=== PATIENT | female | born 1990 | race Caucasian/White ===

== ENCOUNTER 2023-08-29 15:18 | Outpatient (AMB) | payer BC, SELFPAY ==
--- NOTE | 2023-08-29 15:31 | A.OFFPC_ITS ---
Vital Signs 08/29/23 15:34 Height 5 ft 4.17 in Weight 162 lb 2 oz BMI 27.7 BP 118/80 Blood Pressure Location Lt brachial Position Sitting Respiration 12 Pulse 82 Pulse Source Pulse Oximeter Temp 98.4 F Temp Source Oral Pulse Oximetry (%) 99 Oxygen Delivery Method Room Air Intake Visit Reasons: NPV Intake Note: New patient visit Physical Director Required: No Is last menstrual period known: Yes Last menstrual period: 08/16/23 Allergies No Known Allergies Allergy (Verified 08/29/23 15:31) Medication List - Last Reconciled 08/29/23 by Zenobia Ordaz PA-C norethindrone (contraceptive) 0.35 mg PO DAILY phentermine mg PO Tobacco use date assessed: 08/29/23 Dental Screening Dental Screen Date: 08/29/23 Did you have a dental visit in the last 12 months?: Yes Did you have a dental problem in the last 6 months where you did not have access to dental care?: No Was dental information given to patient?: Patient has dentist HPI NPV HPI Details Pt is a 32 y/o female who presents today to re-establish care with me. She is transfering from [facility]. She has a significant past medical history and generalized anxiety, dysthymia, BRCA gene positive and history of obesity. Started phentermine in June and feels like it is working. She lost 8 lbs with this. No difficulty sleeping, palpitations, mood changes, or constipation. She would like to continue this. Psych: Does not feel that she needs the 300 mg of Wellbutrin anymore. Wants to come down to 150 mg. States that when she went up to 300 mg she did start to feel a little bit more anxiety but overall feels like her anxiety and depression is very well-controlled. Denies any SI/HI. 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 Has a good support system. Overall feels happy. She has never been hospitalized BCRA gene positive and follows with the breast center. Mammogram is up-to-date. [facility] Medical History (Updated 08/29/23 @ 16:01 by Zenobia Ordaz PA-C) Generalized anxiety disorder Dysthymia Overweight (BMI 25.0-29.9) Anxiety Ocular migraine Family History (Updated 08/29/23 @ 15:48 by Nancie Jaramillo CMA) Mother HTN (hypertension) Father Hypercholesteremia Diabetes Small cell lung cancer Maternal Grandmother Breast cancer Social History Housing: House Patient Tobacco Use Status: Never used Tobacco e-Cigarette/Vaping Use: Never Used Second Hand Smoke Exposure: No service: No Current occupational status: employed Current occupation: Nurse Current occupational exposures/hazards: No Cognitive needs: No Hearing needs: No Vision needs: Yes (contacts) Female Reproductive History Menstrual Date of last menstrual period: 08/16/23 Questionnaire PHQ-9 Over the last 2 weeks, how often have you been bothered by any of the following problems? 1. Little interest or pleasure in doing things: not at all 2. Feeling down, depressed, or hopeless: not at all 3. Trouble falling or staying asleep, or sleeping too much: not at all 4. Feeling tired or having little energy: several days 5. Poor appetite or overeating: not at all 6. Feeling bad about yourself - or that you are a failure or have let yourself or your family down: not at all 7. Trouble concentrating on things, such as reading the newspaper or watching television: not at all 8. Moving or speaking so slowly that other people could have noticed. Or the opposite - being so fidgety or restless that you have been moving around a lot more than usual: not at all 9. Thoughts that you would be better off or of hurting yourself in some way: not at all Total score: 1 Depression Screening Interpretation: Negative Depression Screening Done: Yes 55237 - PHQ-9 Billing: Yes Source: Developed by Drs. Braydon Brown, Payal Paulson, Geraldo Alexander and colleagues, with an educational alondra from [employer]. Thrive Questionnaire Date Thrive assessed: 08/29/23 I am a: Patient What is your living situation today?: I have a steady place to live Within the past 12 months, did the food you bought not last and you didn't have the money to get more?: Never true Within the past 12 months, did you worry whether your food would run out before you got money to buy more?: Never true Do you have trouble paying for medicines?: No Do you have trouble getting transportation to medical appointments?: No Do you have trouble paying your heating and electricity bill?: No Do you have trouble taking care of your child, family member or friend?: No Do you have trouble with day-to-day activities such as bathing, preparing meals, shopping, managing finances, etc.?: No Are you currently unemployed and looking for a job?: No Are you interested in more education?: No Please select the resources that you would like help with: None Currently or been in a relationship where the following occur: no concerns reported THRIVE Score: 0 AUDIT C Alcohol Use Questionnaire (AUDIT-C) 1. How often do you have a drink containing alcohol?: Monthly or less (1-2 weekly) 2. How many drinks containing alcohol do you have on a typical day when you are drinking?: 1 or 2 3. How often do you have six or more drinks on one occasion?: Never Total Score: 1 CRYSTAL-7 AMB Questionnaire CRSYTAL-7 Date CRYSTAL - 7 assessed: 08/29/23 Feeling nervous, anxious, or on edge: 0 = Not at all Not being able to stop or control worryin = Not at all Worrying too much about different things: 0 = Not at all Trouble relaxin = Several days Being so restless that it is hard to sit still: 0 = Not at all Becoming easily annoyed or irritable: 2 = More than half the days Feeling afraid as if something awful might happen: 0 = Not at all Total CRYSTAL-7 score (0-4 normal; 5-9 mild; 10-14 moderate; 15-21 severe): 3 Source: Developed by Drs. Braydon Brown, Payal Paulson, Geraldo Alexander and colleagues, with an educational alondra from [employer]. CRYSTAL-7 Assessment Billing CRYSTAL-7 Assessment Tool: CRYSTAL-7 Assessment 89278 Physical exam (Primary Care) Vital Signs: Last Vital Signs Temp 98.4 F 08/29/23 15:34 Pulse 82 08/29/23 15:34 Resp 12 08/29/23 15:34 BP 118/80 08/29/23 15:34 Pulse Ox 99 08/29/23 15:34 Oxygen Delivery Method Room Air 08/29/23 15:34 BMI result Body Mass Index 27.7 Tobacco/Smoking Status: Tobacco use Status Tobacco use date assessed 08/29/23 08/29/23 15:33 Patient Tobacco Use Status Never used Tobacco 08/29/23 15:33 e-Cigarette/Vaping Use Never Used 08/29/23 15:33 Depression Screening Interpretation: Negative Currently or been in a relationship where the following occur: no concerns reported Const Nutritional Appearance: not malnourished Orientation/consciousness: patient oriented x3 HENMT Ears: hearing grossly normal bilaterally Neck Thyroid: Thyroid normal Lymphatic: no lymphadenopathy noted Resp Auscultation: clear to auscultation bilaterally Cardio Rate: regular rate Rhythm: regular rhythm Heart sounds: S1 normal heart sound present and S2 normal heart sound present GI Inspection: Yes normal to inspection Palpation (GI): Soft to palpation and Other GI palpation findings present (nontender, no cva tenderness) Auscultation: normoactive bowel sounds Rectal Exam - Female: deferred Skin General skin exam: no rashes or lesions noted Neuro General: patient oriented x3, gait normal and no focal motor deficits Assessment and Plan Assessment & Plan (1) Overweight (BMI 25.0-29.9): Code(s): E66.3 - Overweight Plan: We will refill phentermine today. (2) Dysthymia: Code(s): F34.1 - Dysthymic disorder Plan: We will reduce Wellbutrin to 150 mg. (3) Generalized anxiety disorder: Code(s): F41.1 - Generalized anxiety disorder Plan: As above. She will let me know if there are any issues with this. Plan Follow up in 3-4 months for a physical exam. Sooner if needed. Patient understands and agrees with the plan. Orders: Orders Lipid Panel Today E66.3 - Overweight, F34.1 - Dysthymic disorder, F41.1 - Generalized anxiety disorder Complete Blood Count Auto Diff Today E66.3 - Overweight, F34.1 - Dysthymic disorder, F41.1 - Generalized anxiety disorder Comprehensive Met. Panel Today E66.3 - Overweight, F34.1 - Dysthymic disorder, F41.1 - Generalized anxiety disorder TSH reflex Free T4 Today E66.3 - Overweight, F34.1 - Dysthymic disorder, F41.1 - Generalized anxiety disorder Vitamin B12 and Folate Today E66.3 - Overweight, F34.1 - Dysthymic disorder, F41.1 - Generalized anxiety disorder Medications: New phentermine 15 mg PO BID 30 days 60 caps 1RF bupropion HCl XL (Wellbutrin XL) 150 mg PO QAM 90 tabs 1RF Coding Level of Care Code Est Pt Level 4 (25573) Complex EM visit Add On G2211 Diagnoses Overweight (BMI 25.0-29.9) E66.3 Dysthymia F34.1 Generalized anxiety disorder F41.1 Additional Codes CRYSTAL-7 Assessment Billing - CRYSTAL-7 Assessment Tool: CRYSTAL-7 Assessment 85686 ([id number])
[2023-08-29 15:34] VITALS: BP 118/80; PULSE 82; RESP 12; TEMP 36.9; O2SAT 99; BMI 27.7
== END 2023-08-29 16:10 | disposition home or self-care (01) ==
PROVIDERS: Visit Provider Physician Assistant
DX: F34.1 Dysthymic disorder (principal); E66.3 Overweight; F41.1 Generalized anxiety disorder
CPT/HCPCS: 99214; G2211

== ENCOUNTER 2023-11-13 09:57 | Outpatient (REF) | payer BC, SELFPAY ==
[2023-11-13 11:31] LABS: MANUAL DIFF FLAG NO
[2023-11-13 11:33] LABS: Basophils Percent Auto 0.9 % (0-2); Eosinophils Absolute Auto 0.1 X10*3/uL (0.0-0.4); Eosinophils Percent Auto 1.3 % (0-4); Hematocrit 40.3 % (37.0-47.0); Hemoglobin 14.1 g/dl (12.0-16.0); Imm Gran Abs Auto 0.01 X10*3/uL (0.00-0.03); Imm Gran Pct Auto 0.2 % (0.0-0.4); Lymphocytes Absolute Auto 1.3 X10*3/uL (1.2-4.9); Mean Corpuscular Hemoglobin 32.6 pg (27.0-33.0); Mean Corpuscular Volume 93.3 fL (80.0-98.0); Mean Platelet Volume 10.5 fL (9.4-12.3); Monocytes Absolute Auto 0.4 X10*3/uL (0.1-1.2); Monocytes Percent Auto 8.2 % (2-11); Neutrophils Absolute Auto 2.7 x10*3/uL (2.0-8.3); Neutrophils Percent Auto 60.4 % (45-73); Platelet Count 197 X10*3/uL (160-400); Red Blood Count 4.32 X10*6/uL (4.20-5.50); Red Cell Distribution Width 12.4 % (11.0-16.0); White Blood Count 4.5 X10*3/uL (4.8-10.8)
[2023-11-13 12:32] LABS: Alanine Aminotransferase 20 U/L (0-31); Albumin Level 4.5 g/dL (3.5-5.0); Alkaline Phosphatase 44 U/L (39-117); Anion Gap 12 (12-20); Aspartate Amino Transferase 27 U/L (5-31); Bilirubin Total 0.8 mg/dL (0.0-1.0); Blood Urea Nitrogen 9 mg/dL (9-16); Calcium 9.3 mg/dL (8.4-10.2); Carbon Dioxide 26 mmol/L (22-29); Chloride 106 mmol/L (96-108); Cholesterol 188 mg/dL (<200); Estimated Glomerular Filt Rate > 60; Glucose Random 78 mg/dL (60-115); HDL Cholesterol 73 mg/dL (>40); LDL Cholesterol Calculated 95 mg/dL (<100); Potassium 3.6 mmol/L (3.3-5.1); Sodium 140 mmol/L (135-145); Total Protein 7.1 g/dL (6.5-8.0); Triglycerides 100 mg/dL (<150)
[2023-11-13 12:40] LABS: TSH reflex Free T4 1.66 uIU/mL (0.32-4.0)
[2023-11-13 12:54] LABS: Folate 11.1 ng/mL (> or = 4.0); Vitamin B12 374 pg/mL (200-900)
== END 2023-11-13 09:58 | disposition home or self-care (01) ==
LOC: HO.WFDLDS 09:57
PROVIDERS: Visit Provider Physician Assistant
DX: F41.1 Generalized anxiety disorder (principal); F34.1 Dysthymic disorder; E66.3 Overweight
CPT/HCPCS: 36415; 80053; 80061; 82607; 82746; 84443; 85025

== ENCOUNTER 2023-12-06 08:11 | Outpatient (AMB) | payer BC, SELFPAY ==
--- NOTE | 2023-12-06 08:20 | A.OFFPC_ITS ---
Vital Signs 12/06/23 08:26 Height 5 ft 2.99 in Weight 156 lb BMI 27.6 BP 98/79 Blood Pressure Location Rt brachial Position Sitting Respiration 14 Pulse 78 Pulse Source Pulse Oximeter Pulse Oximetry (%) 98 Oxygen Delivery Method Room Air Intake Visit Reasons: PE Intake Note: Physical Allergies No Known Allergies Allergy (Verified 12/06/23 08:25) Medication List - Last Reconciled 12/06/23 by Zenobia Ordaz PA-C norethindrone (contraceptive) 0.35 mg PO DAILY phentermine 15 mg PO BID 30 days Tobacco use date assessed: 08/29/23 Dental Screening Dental Screen Date: 08/29/23 HPI PE HPI Details Patient is a 33-year-old female who presents today for a physical exam. She has no acute concerns today She has a significant past medical history and generalized anxiety, dysthymia, BRCA gene positive and history of obesity. Started phentermine in June and feels like it is working. She lost 10 lbs with this. No difficulty sleeping, palpitations, mood changes, or constipation. She would like to continue this. Psych: She came off of the Wellbutrin this summer and feels great. She denies any SI/HI. States that her anxiety and depression are currently well- controlled. 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 Has a good support system. Overall feels happy. She has never been hospitalized BCRA gene positive and follows with the breast center. Mammogram is up-to-date. [facility] Medical History (Updated 08/29/23 @ 16:01 by Zenobia Ordaz PA-C) Generalized anxiety disorder Dysthymia Overweight (BMI 25.0-29.9) Anxiety Ocular migraine Family History (Updated 08/29/23 @ 15:48 by Nancie Jaramillo CMA) Mother HTN (hypertension) Father Hypercholesteremia Diabetes Small cell lung cancer Maternal Grandmother Breast cancer Social History Housing: House Patient Tobacco Use Status: Never used Tobacco e-Cigarette/Vaping Use: Never Used Second Hand Smoke Exposure: No service: No Current occupational status: employed Current occupation: Nurse Current occupational exposures/hazards: No Cognitive needs: No Hearing needs: No Vision needs: Yes (contacts) Questionnaire Thrive Questionnaire Date Thrive assessed: 08/29/23 CRYSTAL-7 AMB Questionnaire CRYSTAL-7 Date CRYSTAL - 7 assessed: 08/29/23 Source: Developed by Drs. Braydon Brown, Payal Paulson, Geraldo Alexander and colleagues, with an educational alondra from [employer]. Physical exam (Primary Care) Vital Signs: Last Vital Signs Pulse 78 12/06/23 08:26 Resp 14 12/06/23 08:26 BP 98/79 12/06/23 08:26 Pulse Ox 98 12/06/23 08:26 Oxygen Delivery Method Room Air 12/06/23 08:26 BMI result Body Mass Index 27.6 Tobacco/Smoking Status: Tobacco use Status Tobacco use date assessed 08/29/23 12/06/23 08:21 Patient Tobacco Use Status Never used Tobacco 12/06/23 08:21 e-Cigarette/Vaping Use Never Used 12/06/23 08:21 Thrive Assessment: Date of Thrive Assessment Date Thrive assessed 08/29/23 12/06/23 08:21 Const Orientation/consciousness: patient oriented x3 HENMT Ears: hearing grossly normal bilaterally and TM's normal bilaterally General nose exam: No nasal polyps present Face and sinus: Yes sinuses nontender Mouth: Normal oral and palatal mucosa present Eyes Pupils: Equal, round and reactive pupils present EOM: EOMs intact bilaterally Neck Neck: Yes full ROM and Yes no lymphadenopathy Thyroid: Thyroid normal Chest Chest palpation & inspection: normal inspection of the chest Resp Auscultation: clear to auscultation bilaterally Cardio Rate: regular rate Rhythm: regular rhythm Heart sounds: S1 normal heart sound present and S2 normal heart sound present Peripheral pulses: Peripheral pulses 2+ throughout GI Other: Soft, nontender Auscultation: normal bowel sounds Rectal Exam - Female: deferred General: Yes no CVA tenderness Back/Spine/Pelvis Other: Nontender Back: no CVA tenderness Skin General skin exam: no rashes or lesions noted Neuro General: patient oriented x3, gait normal, CN's II-XI intact bilaterally and deep tendon reflexes 2+ bilaterally Cranial nerves: Yes Equal, round and reactive pupils present Motor exam (neuro): 5/5 motor strength present throughout Sensory Exam: double simultaneous stimulation for sensation normal Coordination: [id number] test normal and Romberg test negative Extrem General: Yes normal to inspection and Yes full ROM Psych Affect: normal affect Attitude: cooperative Thought process: Normal thought process present Thought content: Normal thought content present Insight: Good insight present (Psych) Judgement: Good judgement present (Psych) Results Reviewed Results Reviewed: Laboratory Tests 11/13/23 09:58 Sodium 140 Potassium 3.6 Chloride 106 Creatinine 0.79 Estimated GFR > 60 Random Glucose 78 AST 27 ALT 20 Alkaline Phosphatase 44 Triglycerides 100 Cholesterol 188 LDL Cholesterol, Calc 95 HDL Cholesterol 73 Vitamin B12 374 TSH 1.66 Assessment and Plan Assessment & Plan (1) Overweight (BMI 25.0-29.9): Code(s): E66.3 - Overweight (2) Dysthymia: Code(s): F34.1 - Dysthymic disorder (3) Routine general medical examination at a health care facility: Code(s): Z00.00 - Encounter for general adult medical examination without abnormal findings Coding Level of Care Code Est Pt Prev Care 18-39y(85857) Diagnoses Overweight (BMI 25.0-29.9) E66.3 Dysthymia F34.1 Routine general medical examination at a health care facility Z00.00
[2023-12-06 08:26] VITALS: BP 98/79; PULSE 78; RESP 14; O2SAT 98; BMI 27.6
== END 2023-12-06 09:52 | disposition home or self-care (01) ==
PROVIDERS: PCP Physician Assistant; Visit Provider Physician Assistant
DX: E66.3 Overweight (principal); F34.1 Dysthymic disorder; Z00.00 Encounter for general adult medical examination without abnormal findings
CPT/HCPCS: 99395

== ENCOUNTER 2024-02-21 15:47 | Outpatient (AMB) | payer BC, SELFPAY ==
--- NOTE | 2024-02-21 15:49 | MHC.PC.OV ---
Intake Visit Reasons: Discuss cancer dx and prn anxiety medication Allergies No Known Allergies Allergy (Verified 12/06/23 08:25) Medication List - Last Reconciled 02/21/24 by Zenobia Ordaz PA-C lorazepam 0.5 mg PO BID PRN Tobacco use date assessed: 08/29/23 Dental Screening Dental Screen Date: 08/29/23 HPI Discuss cancer dx and prn anxiety medication HPI Details Patient is a 33-year-old female who presents today for a follow up. Last week got diagnosed with invasive ductal carcinoma of the left breast. She states that this has been very stressful. She does have BRCA gene positive and was following with the breast Center this was picked up on routine MRI. She states that she is going to [facility]. She already met with the team and has an appointment with the surgical oncologist on Monday. Psych: She denies any SI/HI. States that her anxiety and depression are currently okay, obviously exacerbated with the recent cancer diagnosis but does not want to be on anything right now. 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 Has a good support system. [facility] Medical History (Updated 02/21/24 @ 15:57 by Zenobia Ordaz PA-C) Generalized anxiety disorder Dysthymia Overweight (BMI 25.0-29.9) Anxiety Ocular migraine Family History (Updated 08/29/23 @ 15:48 by Nancie Jaramillo [facility]) Mother HTN (hypertension) Father Hypercholesteremia Diabetes Small cell lung cancer Maternal Grandmother Breast cancer Social History Housing: House Patient Tobacco Use Status: Never used Tobacco e-Cigarette/Vaping Use: Never Used Second Hand Smoke Exposure: No service: No Current occupational status: employed Current occupation: Nurse Current occupational exposures/hazards: No Cognitive needs: No Hearing needs: No Vision needs: Yes (contacts) Questionnaire Thrive Questionnaire Date Thrive assessed: 08/29/23 CRYSTAL-7 AMB Questionnaire CRYSTAL-7 Date CRYSTAL - 7 assessed: 08/29/23 Source: Developed by Drs. Braydon Brown, Payal Paulson, Geraldo Alexander and colleagues, with an educational alondra from [employer]). Physical exam (Primary Care) Tobacco/Smoking Status: Tobacco use Status Tobacco use date assessed 08/29/23 12/06/23 08:21 Patient Tobacco Use Status Never used Tobacco 08/21/24 08:21 e-Cigarette/Vaping Use Never Used 12/06/23 08:21 Thrive Assessment: Date of Thrive Assessment Date Thrive assessed 08/29/23 12/06/23 08:21 Telehealth Telehealth Telehealth Platform: Telephone Location of provider rendering services: practice address Location of patient: address on file Patient Identification confirmed using: Name, : Yes Telehealth method: voice only Patient verbally consented to treatment: Yes Patient verbally consented to billing insurance company: Yes Patient informed of any privacy concerns related to visit: Yes Minutes spent on Phone/Video with Pt.: 14 Coding Level of Care Code Tele Est Pt Level 2 (32562) Diagnoses Generalized anxiety disorder F41.1 Dysthymia F34.1 Invasive ductal carcinoma of left breast C50.912 Assessment & Plan Assessment & Plan (1) Generalized anxiety disorder: Code(s): F41.1 - Generalized anxiety disorder Category: Medical Plan: Using lorazepam as needed. States that she has not had to really take this. (2) Dysthymia: Code(s): F34.1 - Dysthymic disorder Category: Medical Plan: As above. Currently feeling okay and wants to wait but does not think she wants any medication at this point. No SI/HI. (3) Invasive ductal carcinoma of left breast: Code(s): C50.912 - Malignant neoplasm of unspecified site of left female breast Category: Medical Plan: Made the decision to follow with [facility]. She has an appointment on Monday with the surgical oncologist.
== END 2024-02-21 16:57 | disposition home or self-care (01) ==
LOC: HO.HMCFM 15:47
PROVIDERS: PCP Physician Assistant; Visit Provider Physician Assistant
DX: F41.1 Generalized anxiety disorder (principal); F34.1 Dysthymic disorder; C50.912 Malignant neoplasm of unspecified site of left female breast

== ENCOUNTER → 2024-02-21 15:47 | Outpatient (BNVA) | payer BC, SELFPAY | PROVIDERS: PCP Physician Assistant; Visit Provider Physician Assistant ==

== ENCOUNTER 2024-05-02 09:31 | Outpatient (AMB) | payer BC, SELFPAY ==
--- NOTE | 2024-05-02 09:37 | A.OFFPC_ITS ---
Vital Signs 05/02/24 09:38 Height 5 ft 2.99 in Weight 153 lb 4 oz BMI 27.2 BP 112/84 Blood Pressure Location Lt brachial Position Sitting Pulse 84 Pulse Source Pulse Oximeter Pulse Oximetry (%) 98 Oxygen Delivery Method Room Air Intake Visit Reasons: discuss depression medication Intake Note: Discuss depression medication Employee Placement Specialist Required: No Allergies No Known Allergies Allergy (Verified 05/02/24 09:38) Medication List - Last Reconciled 05/02/24 by Zenobia Ordaz PA-C lorazepam 0.5 mg PO BID PRN tamoxifen 20 mg PO DAILY Tobacco use date assessed: 08/29/23 Dental Screening Dental Screen Date: 08/29/23 HPI discuss depression medication HPI Details Patient is a 33-year-old female who presents today with complaints of increased anxiety and depression. Recently diagnosed with breast cancer and had a bilateral mastectomy. She is undergoing the filling now so she can discuss implants. She started tamoxifen 2 days ago and is waiting for results about whether or not she will need to start chemo. She finds out in 2 weeks. She states that the lab from [place] just collected the tissue sample. She is following with [facility]. This surgery was completed at [facility]. Obviously, all of this listed above has been causing a great deal of stress in her life. She has a family history of breast cancer and they are discussing whether or not they will need to also remove her ovaries or if she will be on suppression medication. She states that she is just not ready at the age of 33 to enter menopause. She also is worried because she has 2 young children. She finds herself emotional and states that she is ready to talk with someone about this. She has been on support groups but also feels like it creates a lot of fear and anxiety. She is now open to trying medication. She also at times notices lower abdominal bloating in his just worried about her ovaries. She states that she wants a CA 125 checked and a transvaginal ultrasound. She has not yet seen the bone grinder oncologist. She thinks that some of the stresses just causing her to feel a little bloated. [facility] Medical History (Updated 05/02/24 @ 10:16 by Zenobia Ordaz PA-C) Generalized anxiety disorder Dysthymia Overweight (BMI 25.0-29.9) Anxiety Ocular migraine Family History Mother HTN (hypertension) Father Hypercholesteremia Diabetes Small cell lung cancer Maternal Grandmother Breast cancer Social History (Updated 05/02/24 @ 09:41 by Nancie Jaramillo CMA) Housing: House Alcohol intake: current Patient Tobacco Use Status: Never used Tobacco e-Cigarette/Vaping Use: Never Used Second Hand Smoke Exposure: No service: No Current occupational status: employed Current occupation: Nurse Current occupational exposures/hazards: No Cognitive needs: No Hearing needs: No Vision needs: Yes (contacts) Questionnaire PHQ-9 Over the last 2 weeks, how often have you been bothered by any of the following problems? 1. Little interest or pleasure in doing things: several days 2. Feeling down, depressed, or hopeless: more than half the days 3. Trouble falling or staying asleep, or sleeping too much: several days 4. Feeling tired or having little energy: several days 5. Poor appetite or overeating: not at all 6. Feeling bad about yourself - or that you are a failure or have let yourself or your family down: several days 7. Trouble concentrating on things, such as reading the newspaper or watching television: several days 8. Moving or speaking so slowly that other people could have noticed. Or the opposite - being so fidgety or restless that you have been moving around a lot more than usual: not at all 9. Thoughts that you would be better off or of hurting yourself in some way: not at all Total score: 7 Depression Screening Interpretation: Positive Depression Screening Done: Yes 29702 - PHQ-9 Billing: Yes Source: Developed by Drs. Braydon Brown, Payal Paulson, Geraldo Alexander and colleagues, with an educational alondra from [employer]. Thrive Questionnaire Date Thrive assessed: 05/02/24 I am a: Patient What is your living situation today?: I have a steady place to live Within the past 12 months, did the food you bought not last and you didn't have the money to get more?: Never true Within the past 12 months, did you worry whether your food would run out before you got money to buy more?: Never true Do you have trouble paying for medicines?: No Do you have trouble getting transportation to medical appointments?: No Do you have trouble paying your heating and electricity bill?: No Do you have trouble taking care of your child, family member or friend?: No Do you have trouble with day-to-day activities such as bathing, preparing meals, shopping, managing finances, etc.?: No Are you currently unemployed and looking for a job?: No Are you interested in more education?: No Please select the resources that you would like help with: None Currently or been in a relationship where the following occur: No concerns reported THRIVE Score: 0 AUDIT C Alcohol Use Questionnaire (AUDIT-C) 1. How often do you have a drink containing alcohol?: 2-4 times a month 2. How many drinks containing alcohol do you have on a typical day when you are drinking?: 3 or 4 3. How often do you have six or more drinks on one occasion?: Less than monthly Total Score: 4 Score Reviewed/Action Taken: Yes CRYSTAL-7 AMB Questionnaire CRYSTAL-7 Date CRYSTAL - 7 assessed: 05/02/24 Feeling nervous, anxious, or on edge: 2 = More than half the days Not being able to stop or control worryin = Nearly every day Worrying too much about different things: 2 = More than half the days Trouble relaxin = More than half the days Being so restless that it is hard to sit still: 1 = Several days Becoming easily annoyed or irritable: 2 = More than half the days Feeling afraid as if something awful might happen: 1 = Several days Total CRYSTAL-7 score (0-4 normal; 5-9 mild; 10-14 moderate; 15-21 severe): 13 Source: Developed by Drs. Braydon Brown, Payal Paulson, Geraldo Alexander and colleagues, with an educational alondra from [employer]. CRYSTAL-7 Assessment Billing CRYSTAL-7 Assessment Tool: CRYSTAL-7 Assessment 54255 Physical exam (Primary Care) Vital Signs: Last Vital Signs Pulse 84 05/02/24 09:38 BP 112/84 05/02/24 09:38 Pulse Ox 98 05/02/24 09:38 Oxygen Delivery Method Room Air 05/02/24 09:38 BMI result Body Mass Index 27.2 Tobacco/Smoking Status: Tobacco use Status Tobacco use date assessed 08/29/23 05/02/24 09:41 Patient Tobacco Use Status Never used Tobacco 05/02/24 09:41 e-Cigarette/Vaping Use Never Used 05/02/24 09:41 PHQ-9: PHQ-9 Score PHQ-9: Total score 7 05/02/24 12:13 Depression Screening Interpretation: Positive Thrive Assessment: Date of Thrive Assessment Date Thrive assessed 05/02/24 05/02/24 09:41 Currently or been in a relationship where the following occur: No concerns reported Const Orientation/consciousness: patient oriented x3 HENMT Ears: hearing grossly normal bilaterally Neck Thyroid: Thyroid normal Lymphatic: no lymphadenopathy noted Resp Auscultation: clear to auscultation bilaterally Cardio Rate: regular rate Rhythm: regular rhythm Heart sounds: S1 normal heart sound present and S2 normal heart sound present GI Inspection: Yes normal to inspection Palpation (GI): Soft to palpation and Other GI palpation findings present (nontender, no cva tenderness) Auscultation: normoactive bowel sounds Rectal Exam - Female: deferred Skin General skin exam: no rashes or lesions noted Neuro General: patient oriented x3, gait normal and no focal motor deficits Coding Level of Care Code Est Pt Level 4 (63319) Complex EM visit Add On G2211 Diagnoses Dysthymia F34.1 Generalized anxiety disorder F41.1 Invasive ductal carcinoma of left breast C50.912 BRCA2 positive Z15.01; Z15.09 Abdominal bloating R14.0 Additional Codes PHQ-9 - 10329 - PHQ-9 Billing: Yes ([id number]) CRYSTAL-7 Assessment Billing - CRYSTAL-7 Assessment Tool: CRYSTAL-7 Assessment 76334 ([id number]) Assessment & Plan Assessment & Plan (1) Dysthymia: Code(s): F34.1 - Dysthymic disorder Category: Medical Plan: I will start patient on Lexapro. I did put in a referral for behavioral health. I did have her meet with our nurse navigator today. We discussed risks and benefits and adverse effects of the Lexapro. I will have her return in 3-4 weeks to be reassessed. Sooner if needed. (2) Generalized anxiety disorder: Code(s): F41.1 - Generalized anxiety disorder Category: Medical Plan: As above. Refilled lorazepam to use very sparingly. (3) Invasive ductal carcinoma of left breast: Code(s): C50.912 - Malignant neoplasm of unspecified site of left female breast Category: Medical Plan: Following with [facility] (4) BRCA2 positive: Code(s): Z15.01 - Genetic susceptibility to malignant neoplasm of breast; Z15.09 - Genetic susceptibility to other malignant neoplasm Category: Medical Plan: As above (5) Abdominal bloating: Code(s): R14.0 - Abdominal distension (gaseous) Category: Medical Plan: Labs ordered. Ultrasound ordered. We will follow up pending test results. Orders: Orders CA-125 Today C50.912 - Malignant neoplasm of unspecified site of left female breast, F34.1 - Dysthymic disorder, F41.1 - Generalized anxiety disorder, R14.0 - Abdominal distension (gaseous), Z15.01 - Genetic susceptibility to malignant neoplasm of breast, Z15.09 - Genetic susceptibility to other malignant neoplasm TSH reflex Free T4 Today C50.912 - Malignant neoplasm of unspecified site of left female breast, F34.1 - Dysthymic disorder, F41.1 - Generalized anxiety disorder, Z15.01 - Genetic susceptibility to malignant neoplasm of breast, Z15.09 - Genetic susceptibility to other malignant neoplasm US pelvic and transvaginal Today C50.912 - Malignant neoplasm of unspecified site of left female breast, F41.1 - Generalized anxiety disorder, R14.0 - Abdominal distension (gaseous), Z15.01 - Genetic susceptibility to malignant neoplasm of breast, Z15.09 - Genetic susceptibility to other malignant neoplasm US abdomen complete Today C50.912 - Malignant neoplasm of unspecified site of left female breast, R14.0 - Abdominal distension (gaseous), Z15.01 - Genetic susceptibility to malignant neoplasm of breast, Z15.09 - Genetic susceptibility to other malignant neoplasm Comprehensive [place]. Panel Fast Today C50.912 - Malignant neoplasm of unspecified site of left female breast, F34.1 - Dysthymic disorder, F41.1 - Generalized anxiety disorder, Z15.01 - Genetic susceptibility to malignant neoplasm of breast, Z15.09 - Genetic susceptibility to other malignant neoplasm Complete Blood Count Auto Diff Today C50.912 - Malignant neoplasm of unspecified site of left female breast, F34.1 - Dysthymic disorder, F41.1 - Generalized anxiety disorder, Z15.01 - Genetic susceptibility to malignant neoplasm of breast, Z15.09 - Genetic susceptibility to other malignant neoplasm Referrals Nurse Navigator Referral C50.912 - Malignant neoplasm of unspecified site of left female breast, F34.1 - Dysthymic disorder, F41.1 - Generalized anxiety disorder Medications: New escitalopram oxalate (Lexapro) 5 mg PO DAILY 90 tabs 1RF Refilled lorazepam 0.5 mg PO BID PRN 60 tabs 0RF anxiety
[2024-05-02 09:38] VITALS: BP 112/84; PULSE 84; O2SAT 98; BMI 27.2
--- OUTSIDE RECORDS SUMMARY | 2024-05-02 10:41 | XMS_ITS | Continuity of Care Document ---
Author Organization [facility] Address [address] [place] [address]- Care Team Providers Care Food Service Agent Name Role Phone Cesar STONE, Tanya Townsend Primary Care Physician Encounter [facility] [place] Date(s): 03/12/24 - 04/11/24 [facility] [address] [place] [address]- Encounter Type: Triage Allergies, Adverse Reactions, Alerts No Known Allergies Immunizations Given and Recorded Vaccine Date Status Refusal Reason SARS-CoV-2 (COVID-19) mRNA-1273 vaccine 04/05/21 R ecorded SARS-CoV-2 (COVID-19) mRNA-1273 vaccine 04/19/20 R ecorded influenza virus vaccine, inactivated 01/29/21 Suleman rded influenza virus vaccine, inactivated 02/10/20 Give n influenza virus vaccine, inactivated 02/08/16 Suleman rded influenza virus vaccine, inactivated 01/16/16 Suleman rded tetanus/diphtheria/pertussis, acel(Tdap) 1 10/24/19 Given tetanus/diphtheria/pertussis, acel(Tdap) 2 10/18/16 Recorded Afluria (oldterm) 01/26/17 Given 1Result Comment: Hanlded getting vaccine well 2Result Comment: [07/18/2017] done during menses Medications Ativan 1 mg oral tablet See Instructions, 1 tablet By Mouth at bedtime the night before the procedure and repeat dose 1 hour preprocedure, # 2 tablet, 0 Refills, Maintenance, 01/26/24 12:30:00 PM EDT, [id number], Partial fill upon patient request if the prescription is for a schedule II opioid drug., 165, cm, 10/23/23 16:03:00 EDT, Height, 79.3, kg, 08/24/22 8:49:00 EDT, Dry Weight Start Date: 01/26/24 Status: Ordered Quantity: 2.0 Unit: tablet Repeat number: 1 ibuprofen 800 mg oral tablet 800 mg, 1, tablet, By Mouth, 3 times a day, As needed migraine, Refills 0, Maintenance, 08/24/22 9:03:00 AM EDT, Partial fill upon patient request if the prescription is for a schedule II opioid drug. Start Date: 08/24/22 Status: Ordered Repeat number: 1 nystatin topical [id number] u/gm powder 1 application, Topically, 2 times a day, # 15 Gm, 3 Refills, Acute 02/24/25 2:20:00 PM EST, 242:20:00 PM EST, Powder, [id number], Partial fill upon patient request if the prescription is for a schedule II opioid drug., 1 application Topically 2 times a day, 165, cm, 02/20/24 13:02:00 EST, Height, 79.3, kg, 08/24/22 8:49:00 EDT, Dry Weight Start Date: 02/20/24 Stop Date: 02/24/25 Status: Ordered Quantity: 15.0 Unit: g Repeat number: 4 Problem List Condition Confirmation Course Effective Dates Status H ealth Status Informant Anxiety Confirmed Active BRCA2 positive [id number] Confirmed Active Dense breast tissue on mammogram Confirmed Active Migraines with aura Confirmed Active Overweight with body mass index (BMI) of 29 to 29.9 in adult Confirmed Active Pelvic pain Confirmed Active Depression, major, recurrent, mild Confirmed Active Reducible umbilical hernia Confirmed Active Oral contraceptive use Confirmed Active Social History Social History Type Response Smoking Status Never (less than 100 in lifetime) entered on: 12/26/19 Sex Sex Representation Female (finding) Patient Care team information Care Team Personnel Name: Leslie Gonzales MD Position: S WALLPAPER CONSULTANT MD Member Role: Lifetime WALLPAPER CONSULTANT Physician Address: [address] [place] [address]'s [facility] [employer] [place] [address]- Telecom: Name: Tanya Guerrero MD Position: Reference Physician Member Role: PCP [address]: [address] [place] [address], [place] [address]- [place] Telecom: Care Team Related Persons Name: LIZA HOLGUIN Name: SHIRLEY HOLGUIN Insurance Providers Guarantor name: NANCY CHELSIE Health Plan Information #: 1 Payer: HMO [employer] Member Number: NA Policy Number: NA Group Number: NA
--- OUTSIDE RECORDS SUMMARY | 2024-05-02 10:41 | XMS_ITS | Data Portability ---
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 We discussed the fact that this was not the related to congestive heart failure because of its location and the lack of any other symptoms. Reassured she was adequately treated for possible Lyme prophylaxis when the she took the doxycycline. She will follow-up when necessary. At least 25 minutes was spent with the patient in direct [id number] contact of which at least 50% was counseling and coordination of care. [email or web address] Not available 04/06/2016 15:54:56 Plan of Treatment Reminders Order Date Submit Date Provider Last Modified By Organization Details Last Modified Time Details Appointments None recorded. Lab tuberculin skin test - 07/24/13 PPD plant on Rt forearm; Mfr. [employer], Lot # [id number], Exp. 09/06/152013 014 [email or web address] [facility], [address] [place], [address], 4 11:21:45 Referral None recorded. Procedures None recorded. Surgeries None recorded. Imaging None recorded. Medication Orders doxycycline hyclate 100 mg tablet 2015 016 ppaer [id number], [address] [place], [address], 6 17:06:05 Patient TargetsNo targets recorded. Patient Instructions Encounter Date Encounter Id Patient Instructions Last Modified By Organization Details Last Modified Time 12/11/2014 [id number] intrauterine device (IUD) insertion: care instructions [email or web address] Not available 12/11/2014 16:26:58 Well Visit, Ages 18 to 65: Care Instructions [email or web address] Not available 12/11/2014 16:26:58 After a discussi on of treatment options, which included consideration of best practices and patient preferences, the following treatment plan and objectives were adopted: reviewed with neurologic migraine at risk for stork,?? stop control pill- consider IUD,? add 81 mg aspirin, pt agrees with plan and will consider and then schedule [email or web address] Not available 12/11/2014 16:26:58 03/08/2016 [id number] tick bite: care instructions [email or web address] [id number] Not available 04/02/2016 04:10:47 Reason for Referral None Reported. Results Created Date Observation Date Name Description Value Unit Range Abnormal Flag Note LastModifiedBy Organization Detail LastModifiedTime 07/27/19 14 07/26/2013 tuber culin skin test TB negati ve Not Available [address], [address], 07/24/2013 11:21:21 Result Notes None recorded. Problems Name Problem SNOMED Code Status Onset Date Resolution Date Notes Provider Name and Address Organization Details Recorded Time Headache 08795071 Completed 200404/30/[address] [facility] 3 03:06:37 Contusio n 423815272 Completed 200704/30/2010 Not Available [facility] 3 03:06:37 Atypical squamous cells of undeterm ined signific ance on cervical Papanico laou smear 398177986 Active Not Available [facility] 3 03:06:37 Herpes simplex 06413542 Completed 200504/30/2010 tested neg, no recurren ce Not Available [facility] 3 03:06:37 Right lower quadrant pain 825050386 Completed 04/30/2010 Not Available [facility] 3 03:06:37 Urinary tract infectio us disease 60401713 Completed 04/30/2010 Not Available [facility] 3 03:06:37 Diarrhea 57613966 Completed 200004/30/2010 Not Available [facility] 3 03:06:37 Migraine with aura 5175065 Active NICHOLAS Powers [address] [place] [address], [id number] , [facility] 5 16:26:58 Acute pharyngi tis 464129276 Completed 200404/30/2010 Not Available [facility] 3 03:06:37 Closed fracture of phalanx of foot 72296607 Completed 200203/06/2013 Not Available [facility] 3 02:04:03 Pain in throat 701465249 Completed 04/30/2010 Not Available [facility] 3 03:06:37 Common cold 49473198 Completed 200204/30/2010 Not [address] [facility] 3 03:06:37 Verruca vulgaris 05975240 Completed 200104/30/[address] Not [address] [facility] 3 03:06:37 Dysmenor leonel 069101131 Completed 200604/30/2010 Not Available [facility] 3 03:06:37 Infectio us mononucl eosis 688472390 Completed 200403/06/[address] [facility] 3 02:04:07 Acute conjunct ivitis 20514766 Completed 200404/30/2010 Not Available [facility] 3 03:06:37 Abnormal weight gain 913158823 Active Not Available [facility] 3 03:06:37 Sprain of knee and leg Completed 200404/30/2010 Not Available [facility] 3 03:06:37 Concussi on injury of brain 284982404 Completed 200304/30/2010 Not Available [facility] 3 03:06:37 Generali zed abdomina l pain 103364858 Completed 200404/30/2010 Not Available [facility] 3 03:06:37 Acne 56597082 Completed 200604/30/2010 Not Available [facility] 3 03:06:37 Dysuria 88607645 Completed 04/30/2010 Not Available [facility] 3 03:06:37 Migraine 63917707 Active Lina Phillips, MANAGER TRAINING [employer] DEVELOPMENT [address] [place], [address] , [facility] 3 12:26:02 Pain in wrist 61078817 Completed 200304/30/2010 Not Available [facility] 3 03:06:37 Sprain of wrist 34690075 Completed 200304/30/2010 Not Available [facility] 3 03:06:37 Pain in limb 07154955 Completed 200204/30/2010 Not Available [facility] 3 03:06:37 Viral upper respirat ory tract infectio n 907995851 Completed 200704/30/2010 Not Available [facility] 3 03:06:37 Malaise and fatigue 242067439 Completed 200704/30/2010 Not Available [facility] 3 03:06:37 Sprain of hand 91683064 Completed 200204/30/2010 Not Available [facility] 3 03:06:37 Problem Notes None recorded. Medical Equipment None Reported. Allergies No known drug allergies Medications Name Sig Start Date Stop Date Status Note LastModified by Organization Details LastModified Time doxycycl hyc tab 100mg active Not Available Not Available No t Available microgestin tab 05/06 active Not Available Not Available Not Available 05/06 tab active Not Available Not Available Not Available 05/06 1-20 mg-mcg tabs active Not Available Not Available Not Available Apri 0.15 mg-0.03 mg tablet TAKE 1 TABLET BY MOUTH EVERY DAY 2009 active Not Available Not Available Not Avai lable ibuprofen 800 mg tablet Take 1 tablet 3 times a day by oral route as needed. 2011 active Not Available Not Available Not Avai lable Tubersol 5 tub. unit/0.1 mL intradermal injection solution 2010 active rtc 10/04 for tb/pp d read Not Available Not Available Not Available doxycycline hyclate 100 mg tablet TAKE 2 TABLETS TODAY 04/05 completed Not Available Not Available Not Available Bactrim DS 800 mg-160 mg tablet Take 1 tablet every 12 hours by oral route for 7 days. 02/04 completed Not Available Not Available Not Available June05/06 (21) 1 mg-20 mcg tablet TAKE 1 TABLET BY MOUTH EVERY DAY 04/05 completed Not Available Not Available Not Available Vitals Date Recorded Body weight Heart rate Body mass index (BMI) Body height Body temperature Systolic blood pressure Diastolic blood pressure Provider Name and Address Organization Details Last Updated DateTime 5 89126.2 11728 g 80 /min 26 kg/m2 165.1 cm 98.9 [degF] 122 mm[Hg] 70 mm[Hg] Marilyn Gillespie REPRODUCTION ARTIST [facility] 5 16:41:41 Date Recorded Body height Body mass index (BMI) Body weight Provider Name and Address Organization Details Last Updated DateTime 12/11/2014 165.1 cm 24 kg/m2 37121.46268 2 g Radha Damian [facility] 12/11/2014 15:47:49 Date Recorded Heart rate Systolic blood pressure Diastolic blood pressure Provider Name and Address Organization Details Last Updated DateTime 12/11/2014 80 /min 104 mm[Hg] 74 mm[Hg] Radha Damian [facility] 12/11/2014 15:53:39 Date Recorded Body height Provider Name an d Address Organization Details Last Updated DateTime 03/08/2016 165.1 cm Roxanne Salguero LPN [facility] 03/08/2016 07:46:45 Date Recorded Body weight Provider Name an d Address Organization Details Last Updated DateTime 03/08/2016 39039.14 g [facility]ox[facility]gu[facility] 03/08/2016 07:48:01 Date Recorded Body mass index (BMI) Provider Name and Address Organization Details Last Updated DateTime 03/08/2016 27.5 kg/m2 Roxanne Salguero LPN [facility] 03/08/2016 07:48:02 Date Recorded Heart rate Provider Name an d Address Organization Details Last Updated DateTime 03/08/2016 72 /min Roxanne Salguero LPN [facility] 03/08/2016 07:51:50 Date Recorded Body temperature Provider Name a nd Address Organization Details Last Updated DateTime 03/08/2016 98.1 [degF] Roxanne Salguero LPN [facility] 03/08/2016 07:52:23 Date Recorded Body weight Provider Name an d Address Organization Details Last Updated DateTime 04/05/2016 02842.19 g Adrianna Jarrett [facility] 04/05/2016 17:04:20 Date Recorded Body height Body mass index (BMI) Provider Name and Address Organization Details Last Updated DateTime 04/05/2016 163.83 cm 28.4 kg/m2 Adrianna Jarrett [facility] 04/05/2016 17:05:46 Date Recorded Body temperature Provider Name a nd Address Organization Details Last Updated DateTime 04/05/2016 98.2 [degF] Adrianna Jarrett [facility] 04/05/2016 17:05:52 Date Recorded Systolic blood pressure Diastolic blood pressure Provider Name and Address Organization Details Last Updated DateTime 03/08/2016 100 mm[Hg] 66 mm[Hg] Roxanne Salguero LPN [facility] 03/08/2016 07:51:42 Date Recorded Systolic blood pressure Diastolic blood pressure Provider Name and Address Organization Details Last Updated DateTime 04/05/2016 112 mm[Hg] 82 mm[Hg] Adrianna Jarrett [facility] 04/05/2016 17:05:49 Social History Question Answer Notes LastModified by Organizat ion Details LastModified Time Tobacco Smoking Status Never Smoker Not Available [facility] 03/03/2011 04:54:19 Do You Have An Advance Directive? No Not Interested 04/30/10 [email or web address] Information not available 04/30/2010 What Is Your Level Of Alcohol Consumption? Occasional Few On The Weekends Information not available 12/11/2014 What Is Your Level Of Caffeine Consumption? Occasional 3/week Information not available 12/11/2014 How Much Tobacco Do You Chew? None Information not available 12/11/2014 What Type Of Diet Are You Following? 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 With Others [email or web address] Information not available 03/03/2011 Does The Patient Have Difficulty Speaking American? No Information not available 12/11/2014 Does The Patient Have Difficulty Reading American? Yes Information not available 12/11/2014 Patient Has Health Care Proxy Signed And In Chart No Forms Given 12/11/14 Information not available 12/11/2014 Marital Status Single DBA_PATCH_ [email or web address] Information not available 03/03/2011 Mosquito Repellent Used Routinely Yes [email or web address] Information not available 03/03/2011 How Many Children Do You Have? 0 DBA_[email or web address]_ [email or web address] Information not available 03/03/2011 Seat Belts Used Routinely Yes [email or web address] Information not available 03/03/2011 Are You Sexually Active? Yes 2 Yrs [email or web address] Information not available 06/30/2009 Smoke Alarm In Home Yes [email or web address] Information not available 03/03/2011 How Much Tobacco Do You Smoke? No DBA_[email or web address]_ [email or web address] Information not available 03/03/2011 General Stress Level Medium Information not available 12/11/2014 Do You Use Sunscreen Routinely? Yes Information not available 12/11/2014 Sex: Unknown Functional Status None recorded. Mental Status None recorded. Family History Relationship Description Onset Age of this Age Resolved Age Notes LastModified by Organization Details LastModified Time Sister Problem 31 well [email or web address] Not available 12/11/2014 16:05:58 Mother Problem health y [email or web address] Not available 12/11/2014 16:05:58 Father Hyperlipidem ia aesrick Not available 2014 16:05:58 Father Malignant neoplastic disease in lymph nodes. , unknon wn type (previ ously record ed as Cancer ) aesrick Not available 12/11/2014 16:05:58 Paternal Aunt Malignant tumor of breast 50 aesrick Not available 2014 16:05:58 Notes:father- lymphoma- 43, mother- unknown Medical History Condition Response Migraine Headaches Y Gynecological History Statement/Question Response Date of LMP 04/07/2010 Frequency of Cycle (Q days) 28 Menses Monthly Y HPV N History of Abnormal Pap N Current Control Method BCPs Age at Menarche 13 LMP Approximate Obstetrics History GPAL:G 0 P 0 0 0 0 Immunizations Vaccine Type Date Status Note Provider Nam e and Address Organization Details Recorded Time Td(adult) unspecified formulation 3 completed Not Available [facility] 03/02/2011 05:22:52 HPV, unspecified formulation 7 completed Not Available [facility] 03/02/2011 05:22:41 HPV, unspecified formulation 7 completed Not Available [facility] 03/02/2011 05:21:55 Influenza, split virus, trivalent, preservative 9 completed Not Available [facility] 05/04/2019 02:36:22 HPV, unspecified formulation 8 completed Not Available [facility] 03/02/2011 05:22:41 Influenza, split virus, trivalent, preservative 2 completed Not Available [facility] 05/04/2019 02:18:37 DTP 6 completed Not Available [facility] 03/02/2011 05:22:52 DTP 1 completed Not Available [facility] 03/02/2011 05:22:52 DTP 3 completed Not Available [facility] 03/02/2011 05:22:52 DTP 1 completed Not Available [facility] 03/02/2011 05:22:52 DTP 2 completed Not Available [facility] 03/02/2011 05:22:52 OPV 1 completed Not Available [facility] 03/02/2011 05:22:52 OPV 6 completed Not Available [facility] 03/02/2011 05:22:52 OPV 1 completed Not Available [facility] 03/02/2011 05:22:52 OPV 3 completed Not Available [facility] 03/02/2011 05:22:52 Hep B, unspecified formulation 6 completed Not Available [facility] 03/02/2011 05:22:52 Hep B, unspecified formulation 6 completed Not Available [facility] 03/02/2011 05:22:52 Hep B, unspecified formulation 7 completed Not Available [facility] 03/02/2011 05:22:52 Hib, unspecified formulation 1 completed Not Available [facility] 03/02/2011 05:22:52 Hib, unspecified formulation 2 completed Not Available [facility] 03/02/2011 05:22:52 Hib, unspecified formulation 1 completed Not Available [facility] 03/02/2011 05:22:52 Hib, unspecified formulation 2 completed Not Available [facility] 03/02/2011 05:22:52 MMR 6 completed Not Available [facility] 03/02/2011 05:22:52 MMR 2 completed Not Available [facility] 03/02/2011 05:22:52 Influenza, split virus, trivalent, PF 3 completed Not Available [facility] 05/04/2019 02:37:08 Influenza, split virus, quadrivalent, preservative 6 completed Roxanne Salguero LPN [facility] 03/08/2016 08:23:08 Tdap 0 completed Not Available [facility] 05/04/2019 02:38:01 Past Encounters Encounter ID Performer Location Encounter Start Date Encounter Closed Date Diagnosis/Indication Diagnosis SNOMED-CT Code Diagnosis ICD10 Code Diagnosis Note [id number] [facility], OFFICE [address] [place] [address] 05/08/2000 09:45:00 05/07/2008 02:02:29 [id number] [facility], OFFICE [address] [place] [address] 10/10/2000 12:00:00 05/07/2008 02:02:29 [id number] [facility], OFFICE [address] [place] [address] 01/11/2002 15:27:42 05/07/2008 02:02:29 [id number] [facility] [address] [place] [address] 05/15/2002 17:14:25 05/07/2008 02:02:29 [id number] [facility], OFFICE [address] [place] [address] 06/22/2002 14:36:20 05/07/2008 02:02:29 [id number] Radiology , [facility] [address] [place] [address] 06/22/2002 14:50:31 05/07/2008 02:02:29 [id number] Radiology , [facility] [address] [place] [address] 08/19/2002 16:23:24 05/07/2008 02:02:29 [id number] [facility], OFFICE [address] [place] [address] 08/19/2002 15:57:47 05/07/2008 02:02:29 [id number] [facility], OFFICE [address] [place] [address] 10/30/2002 09:19:22 05/07/2008 02:02:29 [id number] Optical, [facility] [address] [place] [address] 12/11/2002 15:31:24 05/07/2008 02:02:29 [id number] [facility], OFFICE [address] [place] [address] 02/25/2003 15:12:44 02/25/2003 18:26:50 [id number] LAB - [facility] [address] [place] [address] 02/25/2003 00:00:00 05/07/2008 02:02:29 [id number] [facility], OFFICE [address] [place] [address] 11/21/2003 15:55:54 11/24/2003 09:14:25 [id number] [facility], [address]ICE [address] [place] [address] 01/01/2004 14:10:29 01/02/2004 09:33:11 [id number] Radiology , [facility] [address] [place] [address] 01/01/2004 14:49:48 01/02/2004 09:30:11 [id number] [facility], OFFICE [address] [place] [address] 03/23/2004 16:44:30 03/24/2004 09:03:41 [id number] [facility], OFFICE [address] [place] [address] 05/28/2004 16:00:33 05/29/2004 09:55:00 [id number] , [facility], OFFICE [address] [facility] [place] [address] 06/07/2004 09:52:25 06/07/2004 15:13:51 [id number] [facility] [address] [facility] [place] [address] 06/07/2004 10:18:47 06/08/2004 08:20:17 [id number] [facility], OFFICE [address] [facility] [place] [address] 08/19/2004 16:23:32 08/20/2004 09:25:11 [id number] [facility], OFFICE [address] [facility] [place] [address] 10/20/2004 15:08:58 10/21/2004 08:30:21 [id number] LAB - [facility] [address] [facility] [place] [address] 10/20/2004 00:00:00 05/07/2008 02:02:29 [id number] [facility], OFFICE [address] [facility] [place] [address] 12/02/2004 14:32:07 05/07/2008 02:02:29 [id number] [facility], OFFICE [address] [facility] [place] [address] 01/27/2005 10:59:39 05/07/2008 02:02:29 [id number] [facility], OFFICE [address] [facility] [place] [address] 01/29/2005 09:23:52 01/29/2005 14:21:59 [id number] [facility], OFFICE [address] [facility] [place] [address] 02/08/2005 13:51:15 05/07/2008 02:02:29 [id number] LAB - [facility] [address] [facility] [place] [address] 02/08/2005 00:00:00 05/07/2008 02:02:29 [id number] [facility], OFFICE [address] [place] [address] 02/10/2005 15:32:28 05/07/2008 02:02:29 [id number] LAB - [facility] [address] [place] [address] 02/10/2005 00:00:00 05/07/2008 02:02:29 [id number] [facility], OFFICE [address] [facility] [place] [address] 03/01/2005 16:14:19 05/07/2008 02:02:29 [id number] [facility], [address] [place] [address] 10/04/2005 08:46:03 05/07/2008 02:02:29 [id number] FP [facility], [address] [place] [address] 12/23/2005 14:55:05 05/07/2008 02:02:29 [id number] , [facility], [address] [place] [address] 06/07/2006 16:22:22 06/08/2006 10:37:35 [id number] [facility], [address] [place] [address] 10/23/2006 16:23:48 10/24/2006 09:26:31 [id number] LAB - [facility] [address] [place] [address] 10/27/2006 07:50:22 10/27/2006 07:50:32 [id number] [facility], [address] [place] [address] 01/12/2007 15:02:24 05/07/2008 02:02:29 [id number] [facility], [address] [place] [address] 02/28/2007 15:02:32 05/07/2008 02:02:29 [id number] LAB - [facility] [address] [place] [address] 02/28/2007 00:00:00 05/07/2008 02:02:29 [id number] [facility], OFFICE [address] [place] [address] 03/19/2007 15:17:18 05/07/2008 02:02:29 [id number] FP [facility], [address] [place] [address] 06/05/2007 16:32:55 05/07/2008 02:02:29 [id number] FP [facility], OFF[address] [place] [address] 11/07/2007 16:45:47 05/07/2008 02:02:29 [id number] FP [facility], OFFICE [address] [place] [address] 01/04/2008 14:59:01 05/07/2008 02:02:29 [id number] LAB - [facility] [address] [facility] [place] [address] 01/04/2008 00:00:00 05/07/2008 02:02:29 [id number] [facility], OFFICE [address] [facility] [place] [address] 01/14/2008 13:25:38 05/07/2008 02:02:29 [id number] [facility], OFFICE [address] [place] [address] 02/05/2008 10:42:12 02/08/2008 08:28:19 [id number] LAB - [facility] [address] [facility] [address] 02/05/2008 11:34:43 02/05/2008 11:35:09 [id number] [facility], OFFICE [address] [facility] [place] [address] 12/28/2008 10:58:16 12/30/2008 16:39:53 [id number] [facility], OFFICE [address] [place] [address] 01/10/2009 09:49:31 01/12/2009 13:48:44 [id number] [facility], OFFICE [address] [place] [address] 01/20/2009 10:28:13 01/20/2009 14:35:58 [id number] [facility], OFFICE [address] [place] [address] 02/03/2009 10:48:33 02/05/2009 09:25:41 [id number] YUDELKA [facility], OFFICE [address] [place] [address] 02/10/2009 14:49:50 02/12/2009 09:19:05 [id number] LAB - [facility] [place] [address] 12/28/2008 00:00:00 02/12/2009 02:00:52 [id number] LAB - [facility] [place] [address] 01/10/2009 00:00:00 02/12/2009 02:00:52 [id number] LAB - [facility] [place] [facility] [place] [address] 01/20/2009 10:56:12 01/20/2009 10:56:45 [id number] ARASELI [facility], OFFICE [address] [place] [address] 06/30/2009 10:38:09 07/02/2009 09:00:33 [id number] FP, [facility], [address] [place] [address] 12/02/2009 10:47:12 12/07/2009 10:28:26 [id number] FP, [facility], OFFICE [address] [place], [place] [address] 01/11/2010 07:28:50 01/14/2010 08:03:37 [id number] FP, [facility], OFFICE [address] [place], [place] [address] 01/26/2010 14:53:01 01/27/2010 11:42:50 [id number] FP, [facility], OFF[address], [place] [address] 03/23/2010 15:26:35 04/20/2010 14:31:30 [id number] FP, [facility], [address] [place] [address] 04/06/2010 09:02:48 04/08/2010 11:02:23 [id number] FP, [facility], [address] [place] [address] 04/30/2010 09:22:49 05/03/2010 13:01:08 [id number] Linda Escobar MA FP, [facility], OFF[address], [place] [address] 09/15/2010 08:48:00 09/17/2010 09:00:24 [id number] FP, [facility], [address] [place] [address] 09/17/2010 08:44:14 09/20/2010 11:49:35 [id number] Linda Escobar MA FP, [facility], OFF[address], [place] [address] 10/01/2010 10:00:13 10/01/2010 10:14:45 [id number] FP, [facility], OFF[address], [place] [address] 10/04/2010 08:55:56 10/05/2010 09:34:20 [id number] Marilyn Gillespie LPN FP, [facility], OFF[address] [place] [address] 02/25/2011 10:31:12 02/28/2011 11:47:03 [id number] Marilyn Gillespie LPN , [facility], OFF[address] [place] [address] 10/17/2011 09:21:07 10/17/2011 10:22:53 [id number] Mandie Chaudhari NP , [facility], [address] [place] [address] 03/15/2012 14:21:47 03/15/2012 14:50:00 [id number] Paty Reyes [facility], OFFICE [address] [place] [address] 01/01/2013 11:34:24 01/01/2013 13:38:00 Adult health examination [id number] see Risk Assessment and Lifestyle Change Counseling section above 22 yo female seen for annual health exam, healthy and well Counseling [id number] Screening for malignant neoplasm of cervix 513080066 Venereal d isease screening 316645050 Influenza vaccine needed [id number] 106 Migraine 10941252 discus sed migraine HAs, encouraged to continue Ibuprofen 800mg prn which are effective. [id number] Roxanne Salguero LPN , [facility], OFF[address] [place] [address] 07/24/2013 10:50:36 07/24/2013 11:21:58 Tuberculosis screening [id number] KEYSHA F[facility], [facility], OFFICE [address] [place] [address] 06/16/2014 16:29:30 06/16/2014 16:48:30 Otalgia 04889752 no s/s of infection. reassuranc e provided. [id number] NICHOLAS Powers , [facility], OFF[address] [place] [address] 12/11/2014 15:24:22 12/11/2014 16:26:44 Adult health examination [id number] see Risk Assessment and Lifestyle Change Counseling section above Counseling [id number] Uses contraception 75670499 Migraine with aura 5119225 [id number] KEYSHA Mariscal [facility], OFF[address] [place] [address] 03/08/2016 07:37:25 03/15/2016 11:52:20 Tick bite 42647505 S10.16XA [id number] Kushal Jones MD , [facility], OFF[address] [place] [address] 04/05/2016 16:52:41 04/05/2016 17:26:25 Swelling of hand 686354751 R22.33 Health Concerns Section Related Observation LastModified by Organization Detai ls LastModified Time None Recorded Concern Status LastModified by Organization Details LastModified Time None Recorded Advance Directives Directive N: not interested 04/30/10 Payers Encounter Date Sequence Insurance Name Policy Number Policy Brown Covered Member ID Brown Member ID Guarantor Name 07/24/2013 1 [facility] [id number] Josey Kallie [id number] Genesis L Tj 06/16/2014 1 [facility] [id number] Josey Kallie [id number] Genesis L Tj 12/11/2014 1 [facility] [id number] 6 Josey Kallie [id number] Genesis L Tj 03/08/2016 1 [facility] [id number] Genesis L Tj [id number] Genesis L Tj 04/05/2016 1 [facility] ([facility]) [id number] Genesis L Tj [id number] Genesis L Tj Notes Date Note Type Note Provider Name and Address Organization Details Recorded Time 07/24/2013 text/html HPI PPD plant for school? TANYA Cao, [facility] 07/24/2013 11:21:49 06/16/2014 text/html pt got right faiza e tonsil swelling, still bothering pt. especially when she eats something hot or when she swallows and it hernandez. Becka Chamberlain, [facility], [address], [facility] 06/19/2014 11:11:06 03/08/2016 text/html Seen for tick bi te on her back noticed on Monday night, removed engorged, embeded tick on Monday night, area of bite became red & irritated. 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 There is no real pain. There is no systemic symptoms, including dyspnea, chills, fever. No unusual weight gain (has gained since her jennifer for her wedding a year ago). Bitten by tick a month ago. She was treated with prophylactic single dose doxycycline at that time. Kushal Jones MD [address] [place] [address], [phone], [facility] 04/06/2016 15:55:34 OBGyn Episode No OBEpisode recorded.
--- OUTSIDE RECORDS SUMMARY | 2024-05-02 10:41 | XMS_ITS | Continuity of Care Document ---
Author Organization [facility] Address [address] [place] [address]- Care Team Providers Care Agency Cashier Name Role Phone Cesar STONE, Tanya Townsend Primary Care Physician [phone] Encounter [facility] Date(s): 02/29/24 - 04/10/[address] [address]- Attending Physician: Daniel Clifton DO Admitting Physician: Daniel Clifton DO Referring Physician: Daniel Clifton DO Encounter Type: Pre-Outpt Allergies, Adverse Reactions, Alerts No Known Allergies [...] Refills, Maintenance, 01/26/24 12:30:00 PM EDT, [id number], Partial fill upon patient request if the [...] Status: Ordered Repeat number: 1 nystatin topical 201056 u/gm powder 1 application, Topically, 2 times a day, # 15 Gm, 3 Refills, Acute 02/24/25 2:20:00 PM EST, :20:00 PM EST, Powder, [facility]/pharmacy #[id number], Partial fill upon patient request if the [...] Personnel Name: Leslie Gonzales MD Position: S ANALYST BUSINESS ANALYSIS MD Member Role: Lifetime ANALYST BUSINESS ANALYSIS Physician Address: [address] [place] [address]'s Health [place] [address]- [place] Telecom: Name: Cesar STONE, Tanya Townsend Position: Reference Physician Member Role: PCP Address: [address] [place] [address]- [place] Telecom: Care Team Related Persons Name: LIZA HOLGUIN Name: SHIRLEY HOLGUIN Insurance Providers Guarantor name: NANCY CHELSIE Health Plan Information #: 1 Payer: HMO BLUE IN NETWORK Member Number: [id number] Policy Number: NA Group Number: [id number] Health Plan Information #: 2 Payer: HMO BL[employer] NETWORK Member Number: [id number] Policy Number: NA Group Number: NA
--- OUTSIDE RECORDS SUMMARY | 2024-05-02 10:41 | XMS_ITS | Continuity of Care Document ---
Author Organization [facility] Address [address] [place] [address]- Care Team Providers Care Construction Cost Estimator Name Role Phone Cesar STONE, Tanya Townsend Primary Care Physician Encounter [facility] Date(s): 02/29/24 - 04/06/[address] [address]- Attending Physician: Daniel Clifton DO Admitting Physician: [...] Status: Ordered Repeat number: 1 nystatin topical [id number] u/gm powder 1 application, Topically, 2 times a day, # 15 Gm, 3 Refills, Acute 02/24/25 2:20:00 PM EST, 242:20:00 PM EST, Powder, [facility]/pharmacy #[id number], Partial fill upon patient [...] Personnel Name: Leslie Gonzales MD Position: S COMMERCIAL CREDIT REVIEWER MD Member Role: Lifetime COMMERCIAL CREDIT REVIEWER Physician Address: [address] [place] [address]'s Health Export Administrator - [address] Telecom: Name: Cesar STONE, Tanya Townsend Position: Reference Physician Member Role: PCP Address: [address] [place] [address]- [place] Telecom: Care Team Related Persons Name: LIZA HOLGUIN Name: SHIRLEY HOLGUIN Insurance Providers Guarantor name: NANCY CHELSIE Health Plan Information #: 1 Payer: HMO BLUE IN NETWORK Member Number: [id number] Policy Number: NA Group Number: [id number] Health Plan Information #: 2 Payer: HMO BLUE IN NETWORK Member Number: [id number] Policy Number: NA Group Number: NA
--- OUTSIDE RECORDS SUMMARY | 2024-05-02 10:41 | XMS_ITS | Continuity of Care Document ---
Author Organization [facility] angel[facility] Address [address] [place] [address] [address] [place] [address]- Care Team Providers Care Washer Carcass Name Role Phone Cesar STONE, Tanya Townsend Primary Care Physician Encounter [facility] Date(s): 03/06/24 - 04/05/24 [facility] [address] [place] [address] Attending Physician: German Rubin Admitting Physician: German Rubin Referring Physician: AdmtrGerman Encounter Type: Triage Allergies, Adverse Reactions, Alerts [...] Status: Ordered Repeat number: 1 nystatin topical 991960 u/gm powder 1 application, Topically, 2 times a day, # 15 Gm, 3 Refills, Acute 02/24/25 2:20:00 PM EST, 242:20:00 PM EST, Powder, [facility]/pharmacy #[id number], Partial fill upon patient request if [...] Personnel Name: Leslie Gonzales MD Position: S CARD CLOTHIER MD Member Role: Lifetime CARD CLOTHIER Physician Address: [address] [place] [address] [facility] [employer] - [address] Telecom: Name: Cesar STONE, Tanya Townsend Position: Reference Physician Member Role: PCP Address: [address] [place] [address]- Telecom: Care Team Related Persons Name: LIZA HOLGUIN Name: SHIRLEY HOLGUIN Insurance Providers Guarantor name: [facility] Information #: 1 Payer: O BLUE IN NETWORK Member Number: NA Policy Number: NA Group Number: NA
== END 2024-05-02 10:26 | disposition home or self-care (01) ==
PROVIDERS: PCP Physician Assistant; Visit Provider Physician Assistant
DX: F34.1 Dysthymic disorder (principal); F41.1 Generalized anxiety disorder; C50.912 Malignant neoplasm of unspecified site of left female breast; Z15.01 Genetic susceptibility to malignant neoplasm of breast; Z15.09 Genetic susceptibility to other malignant neoplasm; R14.0 Abdominal distension (gaseous)

== ENCOUNTER → 2024-05-02 09:31 | Outpatient (BNVA) | payer BC, SELFPAY | PROVIDERS: PCP Physician Assistant; Visit Provider Physician Assistant | DX: F34.1 Dysthymic disorder (principal); F41.1 Generalized anxiety disorder; C50.912 Malignant neoplasm of unspecified site of left female breast; Z15.01 Genetic susceptibility to malignant neoplasm of breast; Z15.09 Genetic susceptibility to other malignant neoplasm; R14.0 Abdominal distension (gaseous); Z90.13 Acquired absence of bilateral breasts and nipples | CPT/HCPCS: 96127 ==

== ENCOUNTER 2024-05-15 09:59 | Outpatient (REF) | payer BC, SELFPAY ==
--- NOTE | ~2024-05-15 | US_ITS ---
CLINICAL HISTORY: R14.0 - Abdominal distension (gaseous) US pelvis transabdominal and transvaginal with Doppler Comparison: None Findings: Transabdominal scanning performed for overall anatomy. Transvaginal scanning performed for additional detail. LMP 04/27/2024 Uterus is 8.9 cm length. Normal myometrium. Endometrium 7.5 mm thickness. Right ovary 4.7 x 2.1 x 3.3 cm. Possible corpus luteum cyst: 1.9 x 1.3 x 2 cm and 2 x 1.4 x 1.7 cm. Left ovary 3 x 1.5 x 1.6 cm. Normal color Doppler with arterial/venous spectral tracing of both ovaries. Small free fluid. IMPRESSION: Possible corpus luteum cysts of the right ovary. This document has been electronically signed by: Jesu Gaytan MD on 05/15/2024 12:53:30
--- NOTE | ~2024-05-15 | US_ITS ---
CLINICAL HISTORY: R14.0 - Abdominal distension (gaseous) US abdomen complete Comparison: None Findings: The visualized pancreas is normal. The aorta and inferior vena cava are normal caliber. The liver is normal in size and echotexture. There is no intrahepatic bile duct dilatation. The common duct is 2.8 mm in diameter. The gallbladder is normal. There is no sonographic Hollis sign. The main portal vein is antegrade. The right kidney is 11 cm in length. The left kidney is 11 cm in length. The spleen is normal. No ascites. IMPRESSION: 1. Normal complete abdominal ultrasound. This document has been electronically signed by: Jesu Gaytan MD on 05/15/2024 15:27:57
--- OUTSIDE RECORDS SUMMARY | 2024-05-15 11:49 | XMS_ITS | Data Portability ---
Author Organization [facility], , [facility] Address [address] [place] [address] Care Team Providers Care Flag Decorator Name Role Phone GUDELIA TURNER Primary Care Provider Assessment Encounter Date Assessment Date Assessment LastModified [...] was spent with the patient in direct dhwg-ic-dzhe contact of which at least 50% was counseling and coordination of care. [email or web address] Not available 04/06/2016 15:54:56 Plan of Treatment Reminders Order Date Submit Date Provider Last Modified By Organization Details Last Modified Time Details Appointments None recorded. Lab tuberculin skin test - 07/24/13 PPD plant on Rt forearm; Mfr. [employer], Lot # [id number], Exp. 09/06/152013 014 [email or web address] [facility], [address] [place], [address], 4 11:21:45 Referral None recorded. Procedures None recorded. Surgeries None recorded. Imaging None recorded. Medication Orders doxycycline hyclate 100 mg tablet 2015 016 ppaer [id number], [address] [place], [address], 6 17:06:05 Patient TargetsNo targets recorded. Patient Instructions Encounter Date Encounter Id Patient Instructions Last Modified By Organization Details Last Modified Time 12/11/2014 [id number] intrauterine device (IUD) insertion: care instructions eligio [...] schedule [email or web address] Not available 12/11/2014 16:26:58 03/08/2016 [id number] tick bite: care instructions [email or web address] [id number] Not available 04/02/2016 04:10:47 Reason for Referral None Reported. Results Created Date Observation Date Name Description Value Unit Range Abnormal Flag Note LastModifiedBy Organization Detail LastModifiedTime 07/27/19 14 07/26/2013 tuber culin skin test TB negati ve Not Available [address], [address], 07/24/2013 11:21:21 Result Notes None recorded. Problems Name Problem SNOMED Code Status Onset Date Resolution Date Notes Provider Name and Address Organization Details Recorded Time Headache 53249391 Completed 200404/30/2010 Not Available [facility] 3 03:06:37 Contusio n 626995369 Completed 200704/30/2010 Not Available [facility] 3 03:06:37 Atypical squamous cells of undeterm ined signific ance on cervical Papanico laou smear 863497067 Active Not Available [facility] 3 03:06:37 Herpes simplex 17871123 Completed 200504/30/2010 tested neg, no recurren ce Not Available [facility] 3 03:06:37 Right lower quadrant pain 719020527 Completed 04/30/2010 Not Available [facility] 3 03:06:37 Urinary tract infectio us disease 13959931 Completed 04/30/2010 Not Available [facility] 3 03:06:37 Diarrhea 44042253 Completed 200004/30/2010 Not Available [facility] 3 03:06:37 Migraine with aura 4707008 Active NICHOLAS Powers [address] [place] [address], [address] , [facility] 5 16:26:58 Acute pharyngi tis 114999329 Completed 200404/30/2010 Not Available [facility] 3 03:06:37 Closed fracture of phalanx of foot 72720428 Completed 200203/06/2013 Not Available [facility] 3 02:04:03 Pain in throat 175131561 Completed 04/30/2010 Not Available [facility] 3 03:06:37 Common cold 93660377 Completed 200204/30/2010 Not Available [facility] 3 03:06:37 Verruca vulgaris 74326749 Completed 200104/30/2010 Not Available [facility] 3 03:06:37 Dysmenor leonel 517404377 Completed 200604/30/2010 Not Available [facility] 3 03:06:37 Infectio us mononucl eosis 275387482 Completed 200403/06/2013 Not Available [facility] 3 02:04:07 Acute conjunct ivitis 77195188 Completed 200404/30/2010 Not Available [facility] 3 03:06:37 Abnormal weight gain 399482918 Active Not Available [facility] 3 03:06:37 Sprain of knee and leg Completed 200404/30/2010 Not Available [facility] 3 03:06:37 Concussi on injury of brain 728845773 Completed 200304/30/2010 Not Available [facility] 3 03:06:37 Generali zed abdomina l pain 735164855 Completed 200404/30/2010 Not Available [facility] 3 03:06:37 Acne 58740743 Completed 200604/30/2010 Not Available [facility] 3 03:06:37 Dysuria 24917232 Completed 04/30/2010 Not Available [facility] 3 03:06:37 Migraine 30157355 Active Lina Phillips, [employer] [address] [place], [address] , [facility] 3 12:26:02 Pain in wrist 21950219 Completed 200304/30/2010 Not Available [facility] 3 03:06:37 Sprain of wrist 19416134 Completed 200304/30/2010 Not Available [facility] 3 03:06:37 Pain in limb 19288877 Completed 200204/30/2010 Not Available [facility] 3 03:06:37 Viral upper respirat ory tract infectio n 512350669 Completed 200704/30/2010 Not Available [facility] 3 03:06:37 Malaise and fatigue 645028426 Completed 200704/30/2010 Not Available [facility] 3 03:06:37 Sprain of hand 82972487 Completed 200204/30/2010 Not Available [facility] 3 03:06:37 Problem Notes None recorded. [...] Address Organization Details Last Updated DateTime 5 52994.2 57681 g 80 /min 26 kg/m2 165.1 cm 98.9 [degF] 122 mm[Hg] 70 mm[Hg] Marilyn Gillespie [employer] [facility] 5 16:41:41 Date Recorded Body height Body mass index (BMI) Body weight Provider Name and Address Organization Details Last Updated DateTime 12/11/2014 165.1 cm 24 kg/m2 84538.44972 2 g Radha Damian [facility] 12/11/2014 15:47:49 Date Recorded Heart rate Systolic blood pressure Diastolic blood pressure Provider Name and Address Organization Details Last Updated DateTime 12/11/2014 80 /min 104 mm[Hg] 74 mm[Hg] Radha Damian [facility] 12/11/2014 15:53:39 Date Recorded Body height Provider Name an d Address Organization Details Last Updated DateTime 03/08/2016 165.1 cm Roxanne Salguero LPN [facility] 03/08/2016 07:46:45 Date Recorded Body weight Provider Name an d Address Organization Details Last Updated DateTime 03/08/2016 39006.14 g Roxanne Salguero L[facility] 03/08/2016 07:48:01 Date Recorded Body mass index (BMI) Provider Name and Address Organization Details Last Updated DateTime 03/08/2016 27.5 kg/m2 Roxanne Salguero LPN [facility] 03/08/2016 07:48:02 Date Recorded Heart rate Provider Name an d Address Organization Details Last Updated DateTime 03/08/2016 72 /min Roxanne Salguero LPN [facility] 03/08/2016 07:51:50 Date Recorded Body temperature Provider Name a nd Address Organization Details Last Updated DateTime 03/08/2016 98.1 [degF] Roxanne Salguero LPN [facility] 03/08/2016 07:52:23 Date Recorded Body weight Provider Name an d Address Organization Details Last Updated DateTime 04/05/2016 33235.19 g Adrianna Jarrett [facility] 04/05/2016 17:04:20 Date Recorded Body height Body mass index (BMI) Provider Name and Address Organization Details Last Updated DateTime 04/05/2016 163.83 cm 28.4 kg/m2 Adrianna Jarrett [facility] 04/05/2016 17:05:46 Date Recorded Body temperature Provider Name a nd Address Organization Details Last Updated DateTime 04/05/2016 98.2 [degF] Adrianna Jarrett [facility] 04/05/2016 17:05:52 Date Recorded Systolic blood pressure Diastolic blood pressure Provider Name and Address Organization Details Last Updated DateTime 03/08/2016 100 mm[Hg] 66 mm[Hg] Roxanne Salguero LPN [facility] 03/08/2016 07:51:42 Date Recorded Systolic blood pressure Diastolic blood pressure Provider Name and Address Organization Details Last Updated DateTime 04/05/2016 112 mm[Hg] 82 mm[Hg] Adrianna Jarrett [facility] 04/05/2016 17:05:49 Social History Question Answer Notes [...] 03/03/2011 Does The Patient Have Difficulty Speaking Rwandan? No Information not available 12/11/2014 Does The Patient Have Difficulty Reading Rwandan? Yes Information not available 12/11/2014 Patient Has [...] Td(adult) unspecified formulation 3 completed Not Available [facility] 03/02/2011 05:22:52 HPV, unspecified formulation 7 completed Not Available [facility] 03/02/2011 05:22:41 HPV, unspecified formulation 7 completed Not Available [facility] 03/02/2011 05:21:55 Influenza, split virus, trivalent, preservative 9 completed Not Available [facility] 05/04/2019 02:36:22 HPV, unspecified formulation 8 completed Not Available [facility] 03/02/2011 05:22:41 Influenza, split virus, trivalent, preservative 2 completed Not Available [facility] 05/04/2019 02:18:37 DTP 6 completed Not Available [facility] 03/02/2011 05:22:52 DTP 1 completed Not Available [facility] 03/02/2011 05:22:52 DTP 3 completed Not Available [facility] 03/02/2011 05:22:52 DTP 1 completed Not Available [facility] 03/02/2011 05:22:52 DTP 2 completed Not Available [facility] 03/02/2011 05:22:52 OPV 1 completed Not Available [facility] 03/02/2011 05:22:52 OPV 6 completed Not Available [facility] 03/02/2011 05:22:52 OPV 1 completed Not Available [facility] 03/02/2011 05:22:52 OPV 3 completed Not Available [facility] 03/02/2011 05:22:52 Hep B, unspecified formulation 6 completed Not Available [facility] 03/02/2011 05:22:52 Hep B, unspecified formulation 6 completed Not Available [facility] 03/02/2011 05:22:52 Hep B, unspecified formulation 7 completed Not Available [facility] 03/02/2011 05:22:52 Hib, unspecified formulation 1 completed Not Available [facility] 03/02/2011 05:22:52 Hib, unspecified formulation 2 completed Not Available [facility] 03/02/2011 05:22:52 Hib, unspecified formulation 1 completed Not Available [facility] 03/02/2011 05:22:52 Hib, unspecified formulation 2 completed Not Available [facility] 03/02/2011 05:22:52 MMR 6 completed Not Available [facility] 03/02/2011 05:22:52 MMR 2 completed Not Available [facility] 03/02/2011 05:22:52 Influenza, split virus, trivalent, PF 3 completed Not Available [facility] 05/04/2019 02:37:08 Influenza, split virus, quadrivalent, preservative 6 completed Roxanne Salguero LPN [facility] 03/08/2016 08:23:08 Tdap 0 completed Not Available [facility] 05/04/2019 02:38:01 Past Encounters Encounter ID Performer Location Encounter Start Date Encounter Closed Date Diagnosis/Indication Diagnosis SNOMED-CT Code Diagnosis ICD10 Code Diagnosis Note [id number] [facility], OFFICE [address] [place] [address] 05/08/2000 09:45:00 05/07/2008 02:02:29 [id number] [facility], OFFICE [address] [place] [address] 10/10/2000 12:00:00 05/07/2008 02:02:29 [id number] [facility], [address] [place] [address] 01/11/2002 15:27:42 05/07/2008 02:02:29 [id number] [facility] [address] [place] [address] 05/15/2002 17:14:25 05/07/2008 02:02:29 [id number] [facility], [address]ICE [address] [place] [address] 06/22/2002 14:36:20 05/07/2008 02:02:29 [id number] Radiology , [facility] [address] [place] [address] 06/22/2002 14:50:31 05/07/2008 02:02:29 [id number] Radiology , [facility] [address] [place] [address] 08/19/2002 16:23:24 05/07/2008 02:02:29 [id number] [facility], [address]ICE [address] [place] [address] 08/19/2002 15:57:47 05/07/2008 02:02:29 [id number] [facility], [address] [place] [address] 10/30/2002 09:19:22 05/07/2008 02:02:29 [id number] Optical, [facility] [address] [place] [address] 12/11/2002 15:31:24 05/07/2008 02:02:29 [id number] [facility], [address]ICE [address] [place] [address] 02/25/2003 15:12:44 02/25/2003 18:26:50 [id number] LAB - [facility] [address] [place] [address] 02/25/2003 00:00:00 05/07/2008 02:02:29 [id number] [facility], [address]ICE [address] [place] [address] 11/21/2003 15:55:54 11/24/2003 09:14:25 [id number] [facility], [address]ICE [address] [place] [address] 01/01/2004 14:10:29 01/02/2004 09:33:11 [id number] Radiology , [facility] [address] [place] [address] 01/01/2004 14:49:48 01/02/2004 09:30:11 [id number] [facility], [address] [place] [address] 03/23/2004 16:44:30 03/24/2004 09:03:41 [id number] [facility], [address] [place] [address] 05/28/2004 16:00:33 05/29/2004 09:55:00 [id number] , [facility], OFFICE [address] [facility] [place] [address] 06/07/2004 09:52:25 06/07/2004 15:13:51 [id number] [facility] [address] [facility] [place] [address] 06/07/2004 10:18:47 06/08/2004 08:20:17 [id number] [facility], OFFICE [address] [facility] [place] [address] 08/19/2004 16:23:32 08/20/2004 09:25:11 [id number] [facility], OFFICE [address] [facility] [place] [address] 10/20/2004 15:08:58 10/21/2004 08:30:21 [id number] LAB - [facility] [address] [facility] [place] [address] 10/20/2004 00:00:00 05/07/2008 02:02:29 [id number] [facility], OFFICE [address] [facility] [place] [address] 12/02/2004 14:32:07 05/07/2008 02:02:29 [id number] [facility], OFFICE [address] [facility] [place] [address] 01/27/2005 10:59:39 05/07/2008 02:02:29 [id number] [facility], OFFICE [address] [facility] [place] [address] 01/29/2005 09:23:52 01/29/2005 14:21:59 [id number] [facility], OFFICE [address] [facility] [place] [address] 02/08/2005 13:51:15 05/07/2008 02:02:29 [id number] LAB - [facility] 70 [facility] [place] [address] 02/08/2005 00:00:00 05/07/2008 02:02:29 [id number] [facility], OFFICE [address] [facility] [place] [address] 02/10/2005 15:32:28 05/07/2008 02:02:29 [id number] LAB - [facility] [address] [place] [address] 02/10/2005 00:00:00 05/07/2008 02:02:29 [id number] [facility], OFFICE [address] [facility] [place] [address] 03/01/2005 16:14:19 05/07/2008 02:02:29 [id number] [facility], [address] [place] [address] 10/04/2005 08:46:03 05/07/2008 02:02:29 [id number] FP [facility], [address] [place] [address] 12/23/2005 14:55:05 05/07/2008 02:02:29 [id number] , [facility], [address] [place] [address] 06/07/2006 16:22:22 06/08/2006 10:37:35 [id number] [facility], [address] [place] [address] 10/23/2006 16:23:48 10/24/2006 09:26:31 [id number] LAB - [facility] [address] [place] [address] 10/27/2006 07:50:22 10/27/2006 07:50:32 [id number] [facility], [address] [place] [address] 01/12/2007 15:02:24 05/07/2008 02:02:29 [id number] [facility], [address] [place] [address] 02/28/2007 15:02:32 05/07/2008 02:02:29 [id number] LAB - [facility] [address] [place] [address] 02/28/2007 00:00:00 05/07/2008 02:02:29 [id number] [facility], [address] [place] [address] 03/19/2007 15:17:18 05/07/2008 02:02:29 [id number] FP [facility], [address] [place] [address] 06/05/2007 16:32:55 05/07/2008 02:02:29 [id number] FP [facility], [address] [place] [address] 11/07/2007 16:45:47 05/07/2008 02:02:29 [id number] FP [facility], [address] [place] [address] 01/04/2008 14:59:01 05/07/2008 02:02:29 [id number] LAB - [facility] 70 [facility] [place] [address] 01/04/2008 00:00:00 05/07/2008 02:02:29 [id number] [facility], OFFICE [address] [facility] [address] 01/14/2008 13:25:38 05/07/2008 02:02:29 [id number] [facility], OFFICE [address] [facility] [place] [address] 02/05/2008 10:42:12 02/08/2008 08:28:19 [id number] LAB - [facility] 70 [facility] [place] [address] 02/05/2008 11:34:43 02/05/2008 11:35:09 [id number] [facility], OFFICE [address] [place] [address] 12/28/2008 10:58:16 12/30/2008 16:39:53 [id number] [facility], OFFICE [address] [place] [address] 01/10/2009 09:49:31 01/12/2009 13:48:44 [id number] [facility], OFFICE [address] [place] [address] 01/20/2009 10:28:13 01/20/2009 14:35:58 [id number] [facility], [address] [place] [address] 02/03/2009 10:48:33 02/05/2009 09:25:41 [id number] [facility], OFFICE [address] [place] [address] 02/10/2009 14:49:50 02/12/2009 09:19:05 [id number] LAB - [facility] [place] [address] 12/28/2008 00:00:00 02/12/2009 02:00:52 [id number] LAB - [facility] [place] [address] 01/10/2009 00:00:00 02/12/2009 02:00:52 [id number] LAB - [facility] [place] [address] 01/20/2009 10:56:12 01/20/2009 10:56:45 [id number] ARASELI [facility], [address] [place] [address] 06/30/2009 10:38:09 07/02/2009 09:00:33 [id number] FP, [facility], [address] [place] [address] 12/02/2009 10:47:12 12/07/2009 10:28:26 [id number] FP, [facility], OFFICE [address] [place], [place] [address] 01/11/2010 07:28:50 01/14/2010 08:03:37 [id number] FP, [facility], OFF[address] [place], [place] [address] 01/26/2010 14:53:01 01/27/2010 11:42:50 [id number] FP, [facility], OFFICE [address] [place], [place] [address] 03/23/2010 15:26:35 04/20/2010 14:31:30 [id number] FP, [facility], [address] [place] [address] 04/06/2010 09:02:48 04/08/2010 11:02:23 [id number] FP, [facility], [address] [place] [address] 04/30/2010 09:22:49 05/03/2010 13:01:08 [id number] Linda Escobar MA FP, [facility], OFFICE [address] [place], [place] [address] 09/15/2010 08:48:00 09/17/2010 09:00:24 [id number] FP, [facility], [address] [place] [address] 09/17/2010 08:44:14 09/20/2010 11:49:35 [id number] Linda Escobar MA FP, [facility], OFFICE [address] [place], [place] [address] 10/01/2010 10:00:13 10/01/2010 10:14:45 [id number] FP, [facility], OFFICE [address] [place], [place] [address] 10/04/2010 08:55:56 10/05/2010 09:34:20 [id number] Marilyn Gillespie LPN FP, [facility], [address] [place] [address] 02/25/2011 10:31:12 02/28/2011 11:47:03 [id number] Marilyn Gillespie LPN , [facility], [address] [place] [address] 10/17/2011 09:21:07 10/17/2011 10:22:53 [id number] Mandie Chaudhari NP , [facility], [address] [place] [address] 03/15/2012 14:21:47 03/15/2012 14:50:00 [id number] Paty Reyes [facility], [address] [place] [address] 01/01/2013 11:34:24 01/01/2013 13:38:00 Adult health examination [id number] see Risk Assessment and Lifestyle Change Counseling section above 22 yo female seen for annual health exam, healthy and well Counseling [id number] Screening for malignant neoplasm of cervix 275152104 Venereal d isease screening 708964440 Influenza vaccine needed 0409532209 106 Migraine 02359143 discus sed migraine HAs, encouraged to continue Ibuprofen 800mg prn which are effective. [id number] Roxanne Salguero LPN , [facility], [address] [place] [address] 07/24/2013 10:50:36 07/24/2013 11:21:58 Tuberculosis screening 816757238 [id number] KEYSHA Fink[facility], [facility], [address] [place] [address] 06/16/2014 16:29:30 06/16/2014 16:48:30 Otalgia 70445033 no s/s of infection. reassuranc e provided. [id number] NICHOLAS Powers , [facility], [address] [place] [address] 12/11/2014 15:24:22 12/11/2014 16:26:44 Adult health examination 645379447 see Risk Assessment and Lifestyle Change Counseling section above Counseling [id number] Uses contraception 22398747 Migraine with aura 4915075 [id number] KEYSHA Marsical [facility], [address] [place] [address] 03/08/2016 07:37:25 03/15/2016 11:52:20 Tick bite 02287699 S10.16XA [id number] Kushal Jones MD , [facility], [address] [place] [address] 04/05/2016 16:52:41 04/05/2016 17:26:25 Swelling of hand 555409165 R22.33 Health Concerns Section Related Observation LastModified by Organization Detai ls LastModified Time None Recorded Concern Status LastModified by Organization Details LastModified Time None Recorded Advance Directives Directive N: not interested 04/30/10 Payers Encounter Date Sequence Insurance Name Policy Number Policy Brown Covered Member ID Brown Member ID Guarantor Name 07/24/2013 1 [facility] [id number] Josey Kallie [id number] Genesis L Tj 06/16/2014 1 [facility] [id number] Josey Kallie [id number] Genesis L Tj 12/11/2014 1 [facility] [id number] Josey Kallie [id number] Genesis L Tj 03/08/2016 1 [facility] [id number] Genesis L Tj [id number] Genesis L Tj 04/05/2016 1 [facility] ([facility]) [id number] Genesis L Tj [id number] Genesis L Tj Notes Date Note Type Note Provider Name and Address Organization Details Recorded Time 07/24/2013 text/html HPI PPD plant for school? TANYA Cao, [facility] 07/24/2013 11:21:49 06/16/2014 text/html pt got right faiza e tonsil swelling, still bothering pt. especially when she eats something hot or when she swallows and it hernandez. Becka Chamberlain, [facility], [address], [facility] 06/19/2014 11:11:06 03/08/2016 text/html Seen for tick bi te on her back noticed on Monday night, removed engorged, embeded tick on Monday night, area of bite became red & irritated. Lina Phillips, [address], [address], [facility] 03/08/2016 08:12:55 04/05/2016 text/html 25-year-old nurs e [...] doxycycline at that time. Kushal Jones MD [address] [place] [address], [address], [facility] 04/06/2016 15:55:34 OBGyn Episode No OBEpisode recorded.
--- OUTSIDE RECORDS SUMMARY | 2024-05-15 11:49 | XMS_ITS | Clinical Summary ---
Author Organization [employer] Address [address] [facility] [address] [place] [address] Care Team Providers [employer] Supervisor Name Role Phone Unavailable Primary Care Provider Unavailabl e Allergies No known active allergies Medications ibuprofen 800 MG tabletIndicatio ns:Back strain, initial encounter Take 1 tablet (800 mg) by mouth if needed in the morning, at noon, and at bedtime for mild pain. 30 tablet 06/29/2023 Active albuterol 108 (90 Base) MCG/ACT inhaler Inhale 2 puffs every 6 (six) hours if needed. 03/10/2024 Active benzonatate (Tessalon) 100 MG capsule TAKE 1 CAPSULE BY MOUTH THREE TIMES A DAY NEEDED FOR COUGH 03/10/2024 Active nystatin (Mycostatin) 508305 UNIT/GM powder Apply topically. 02/20/2024 5 Active Active Problems Problem Noted Date Diagnosed Date Anxiety 03/27/2023 03/27/2023 Dense breast tissue on mammogram 03/27/2023 03/27/2023 Depression, major, recurrent, mild 03/27/2023 03/27/2023 Migraine headache 03/27/2023 03/27/2023 Family history of malignant melanoma 07/29/2020 03/27/2023 Family history of prostate cancer 07/29/2020 03/27/2023 BRCA2 gene mutation positive in female 03/27/2023 Overview (03/27/2023): BRCA2 [id number] Tested at [facility] through [facility] Encounters Date Type Department Care Team Description 03/18/2024 8:00 AM EST Office Visit [facility] [address] [place] [id number] Mili Mann CNP Acute cough (Primary Dx) from Last 3 Months Immunizations Name Administration Dates Next Due INFLUENZA INJECTABLE QUADRIV ALANT CCIIV4 MDCK Multi-dose vial 01/12/2023 Influenza Whole 01/26/2017 Influenza, IIV3, injectable 01/18/2024,1 ,01/29/2021,2019,02/08/2016,01/16/2016 Influenza, Injectable, MDCK, w/preservative 01/18/2024 Moderna Covid-19 Vaccine 12+ 04/05/2021,04/19/19 21 Tdap 10/24/2019,10/18/2016 Family History Medical History Relation Name Comments Lung cancer Father Breast cancer Father's Sister Melanoma Father's Sister Relation Name Status Comments Father Father's Sister Social History Tobacco Use Types Packs/Day Years Used Date Smoking Tobacco: Never Smokeless Tobacco: Never Alcohol Use Standard Drinks/Week Comments Yes 2 (1 standard drink = 0.6 oz pur e alcohol) Comments No Sex and Gender Information Value Date Recorded Sex Assigned at Female 01/12/2023 12:58 PM EDT Legal Sex Female 5:31 PM EST Gender Identity Female 01/12/2023 12:58 PM EDT Sexual Orientation Straight 01/12/2023 12 :58 PM EDT Last Filed Vital Signs Vital Sign Reading Time Taken Comments Blood Pressure 106/68 03/18/2024 8:10 AM EST Pulse 86 03/18/2024 8:10 AM EST Temperature 36.6 ??C (97.8 ??F) 03/18/2024 8:10 AM ES T Respiratory Rate 16 03/18/2024 8:10 AM EST Oxygen Saturation 98% 03/18/2024 8:10 AM EST Inhaled Oxygen Concentration - - Weight 71.2 kg (157 lb) 03/18/2024 8:10 AM EST Height 163.8 cm (5' 4.5 ) 03/18/2024 8:10 AM EST Body Mass Index 26.53 03/18/2024 8:10 AM EST Plan of Treatment Health Maintenance Due Date Last Done Comments Depression Screening 1990 HIV Screening 1990 SDOH Screening 1990 Pneumococcal Vaccine: Pediatrics (0 to 5 Years) and At-Risk Patients (6 to 49) Years) (1 of 2 - PCV) 1996 Alcohol/Substance Use Screening 2002 Family Planning (PISQ) 2005 Hepatitis C Screening 2008 Hepatitis B Vaccines (1 of 3 - 19+ 3-dose series) 2009 Pap Smear 11/02/2011 Cervical Cancer Screening 2020 HPV/Cotest 2020 COVID-19 Vaccine (3 - 2023- season) 2023 04/05/2021, 04/19/2020 Tobacco Screening 09/28/2024 09/29/2023 DTaP/Tdap/Td Vaccines (3 - Td or Tdap) 10/23/2029 10/24/2019, 10/18/2016 Zoster Vaccines (1 of 2) 2040 RSV Patients and Patients Aged 60 years or older (1 - 1-dose 75+ series) 2065 Influenza Vaccine Completed 01/18/2024, , 01/12/2023, Additional history exists HIB Vaccines Aged Out No longer eligi ble based on patient's age to complete this topic HPV Vaccines Aged Out No longer eligi ble based on patient's age to complete this topic Hepatitis A Vaccines Aged Out No long er eligible based on patient's age to complete this topic IPV Vaccines Aged Out No longer eligi ble based on patient's age to complete this topic Meningococcal Vaccine Aged Out No [place] eligible based on patient's age to complete this topic RSV under 20 months Aged Out No longe r eligible based on patient's age to complete this topic Rotavirus Vaccines Aged Out No longer eligible based on patient's age to complete this [place] [id number] [facility] HMO Care Teams [employer] Supervisor Relationship Specialty Start Date End Date Zenobia Truong [address] [place] [id number] Primary Care Provider Family Medicine 02/16/23
[2024-05-15 13:34] LABS: MANUAL DIFF FLAG NO
[2024-05-15 13:53] LABS: Basophils Percent Auto 0.7 % (0-2); Eosinophils Absolute Auto 0.1 X10*3/uL (0.0-0.4); Eosinophils Percent Auto 1.2 % (0-4); Hematocrit 42.5 % (37.0-47.0); Hemoglobin 14.3 g/dl (12.0-16.0); Imm Gran Abs Auto 0.01 X10*3/uL (0.00-0.03); Imm Gran Pct Auto 0.2 % (0.0-0.4); Lymphocytes Absolute Auto 1.7 X10*3/uL (1.2-4.9); Mean Corpuscular HGB Conc 33.6 g/dl (31.0-35.0); Mean Corpuscular Hemoglobin 30.6 pg (27.0-33.0); Mean Corpuscular Volume 90.8 fL (80.0-98.0); Mean Platelet Volume 10.6 fL (9.4-12.3); Monocytes Absolute Auto 0.4 X10*3/uL (0.1-1.2); Neutrophils Absolute Auto 3.5 x10*3/uL (2.0-8.3); Neutrophils Percent Auto 61.9 % (45-73); Platelet Count 211 X10*3/uL (160-400); Red Blood Count 4.68 X10*6/uL (4.20-5.50); White Blood Count 5.7 X10*3/uL (4.8-10.8)
[2024-05-15 14:27] LABS: Alanine Aminotransferase 21 U/L (0-31); Albumin Level 4.6 g/dL (3.5-5.0); Alkaline Phosphatase 41 U/L (39-117); Anion Gap 11 (12-20); Aspartate Amino Transferase 25 U/L (5-31); Bilirubin Total 0.4 mg/dL (0.0-1.0); Blood Urea Nitrogen 9 mg/dL (9-16); Carbon Dioxide 24 mmol/L (22-29); Chloride 105 mmol/L (96-108); Estimated Glomerular Filt Rate > 60; Glucose Fasting 71 mg/dL (60-99); Potassium 3.7 mmol/L (3.3-5.1); Sodium 136 mmol/L (135-145); Total Protein 7.9 g/dL (6.5-8.0)
[2024-05-15 14:32] LABS: TSH reflex Free T4 1.56 uIU/mL (0.32-4.0)
[2024-05-18 08:54] LABS: CA-125 16 U/mL (<35)
== END 2024-05-15 10:00 | disposition home or self-care (01) ==
LOC: HO.HMGCX 09:59
PROVIDERS: PCP Physician Assistant; Visit Provider Physician Assistant
DX: R14.0 Abdominal distension (gaseous) (principal); C50.912 Malignant neoplasm of unspecified site of left female breast; F41.1 Generalized anxiety disorder; F34.1 Dysthymic disorder; Z15.01 Genetic susceptibility to malignant neoplasm of breast; Z15.09 Genetic susceptibility to other malignant neoplasm
CPT/HCPCS: 36415; 76700; 76830; 76856; 80053; 84443; 85025; 86304

== ENCOUNTER → 2024-05-15 10:02 | Outpatient (BNV) | payer BC, SELFPAY | PROVIDERS: PCP Physician Assistant; Visit Provider Nuclear Medicine | DX: R14.0 Abdominal distension (gaseous) (principal) | CPT/HCPCS: 76700; 76830; 76856 ==

== ENCOUNTER 2024-05-16 13:01 | Outpatient (AMB) | payer BC, SELFPAY ==
--- NOTE | 2024-05-16 13:02 | MHC.PC.OV ---
Intake Visit Reasons: f/u meds Intake Note: Follow up medication Brand Protection Manager Required: No Allergies No Known Allergies Allergy (Verified 05/02/24 09:38) Tobacco use date assessed: 08/29/23 Dental Screening Dental Screen Date: 08/29/23 HPI f/u meds HPI Details Patient is a 33-year-old female who presents today for a follow up regarding her anxiety and depression. She states since starting the Lexapro 5 mg she is feeling a lot better but does feel like she could go up on the dosage. She is less tearful. Feeling much more in control of her emotions. Has not needed to use the lorazepam. Recently diagnosed with breast cancer and had a bilateral mastectomy. She is undergoing the filling now so she can discuss implants. She started tamoxifen a few weeks ago and is tolerating this well. Following a Belén-Evonne. States that she had a great score and that she should not need anything additional other than tamoxifen. [facility] Medical History (Updated 05/02/24 @ 10:16 by Zenobia Ordaz PA-C) Generalized anxiety disorder Dysthymia Overweight (BMI 25.0-29.9) Anxiety Ocular migraine Family History Mother HTN (hypertension) Father Hypercholesteremia Diabetes Small cell lung cancer Maternal Grandmother Breast cancer Social History (Updated 05/16/24 @ 13:03 by Nancie Jaramillo CMA) Housing: House Alcohol intake: current Patient Tobacco Use Status: Never used Tobacco e-Cigarette/Vaping Use: Never Used Second Hand Smoke Exposure: No Use of substances other than those prescribed or required for medical reasons: No service: No Current occupational status: employed Current occupation: Nurse Current occupational exposures/hazards: No Cognitive needs: No Hearing needs: No Vision needs: Yes (contacts) Questionnaire Thrive Questionnaire Date Thrive assessed: 05/02/24 CRYSTAL-7 AMB Questionnaire CRYSTAL-7 Date CRYSTAL - 7 assessed: 05/02/24 Source: Developed by Drs. Braydon Brown, Payal Paulson, Geraldo Alexander and colleagues, with an educational alondra from [employer]. Physical exam (Primary Care) Tobacco/Smoking Status: Tobacco use Status Tobacco use date assessed 08/29/23 05/16/24 13:03 Patient Tobacco Use Status Never used Tobacco 05/16/24 13:03 e-Cigarette/Vaping Use Never Used 05/16/24 13:03 Thrive Assessment: Date of Thrive Assessment Date Thrive assessed 05/02/24 05/16/24 13:03 Telehealth Telehealth Telehealth Platform: Telephone Location of provider rendering services: practice address Location of patient: address on file Patient Identification confirmed using: Name, : Yes Telehealth method: voice only Patient verbally consented to treatment: Yes Patient verbally consented to billing insurance company: Yes Patient informed of any privacy concerns related to visit: Yes Minutes spent on Phone/Video with Pt.: 10 Coding Level of Care Code Tele Est Pt Level 2 (74477) Diagnoses Generalized anxiety disorder F41.1 Dysthymia F34.1 Assessment & Plan Assessment & Plan (1) Generalized anxiety disorder: Code(s): F41.1 - Generalized anxiety disorder Category: Medical Plan: Increase Lexapro to 10 mg. Advised to follow up if anything changes. We will follow up in a few months. Sooner if needed. Patient understands and agrees with the plan. (2) Dysthymia: Code(s): F34.1 - Dysthymic disorder Category: Medical Plan: See above Medications: New escitalopram oxalate (Lexapro) 10 mg PO DAILY 90 tabs 3RF Discontinued escitalopram oxalate (Lexapro) Discontinued Reason: Doctor's Order 5 mg PO DAILY 90 tabs 1RF
--- OUTSIDE RECORDS SUMMARY | 2024-05-16 16:49 | XMS_ITS | Data Portability ---
Author Organization [facility], , [facility] Address [address] [place] [address] Care Team Providers Care Vein Access Technician Name Role Phone GUDELIA TURNER Primary Care Provider [phone] Assessment Encounter Date Assessment Date Assessment LastModified [...] was spent with the patient in direct [id number] contact of which at least 50% was counseling and coordination of care. [email or web address] Not available 04/06/2016 15:54:56 Plan of Treatment Reminders Order Date Submit Date Provider Last Modified By Organization Details Last Modified Time Details Appointments None recorded. Lab tuberculin skin test - 07/24/13 PPD plant on Rt forearm; Mfr. [employer], Lot # [id number], Exp. 09/06/152013 014 [email or web address] [facility], [address] [place], [address], 4 11:21:45 Referral None recorded. Procedures None recorded. Surgeries None recorded. Imaging None recorded. Medication Orders doxycycline hyclate 100 mg tablet 2015 016 ppaer [id number], [address] [place], [address], 6 17:06:05 Patient TargetsNo targets recorded. Patient Instructions Encounter Date Encounter Id Patient Instructions Last Modified By Organization Details Last Modified Time 12/11/2014 [id number] intrauterine device (IUD) insertion: care instructions [email or web address] Not available 12/11/2014 16:26:58 Well Visit, Ages 18 to 65: Care Instructions [email or web address] Not available 12/11/2014 16:26:58 After a discussi on of treatment options, which included consideration of best practices and patient preferences, the following treatment plan and objectives were adopted: reviewed with neurologic migraine at risk for stork,? ? ? stop control pill- consider IUD,? add 81 mg aspirin, pt agrees with plan and will consider and then schedule [email or web address] Not available 12/11/2014 16:26:58 03/08/2016 [id number] tick bite: care instructions [id number] Not available 04/02/2016 04:10:47 Reason for Referral None Reported. Results Created Date Observation Date Name Description Value Unit Range Abnormal Flag Note LastModifiedBy Organization Detail LastModifiedTime 07/27/19 14 07/26/2013 tuber culin skin test TB negati ve Not Available [address], [address], 07/24/2013 11:21:21 Result Notes None recorded. Problems Name Problem SNOMED Code Status Onset Date Resolution Date Notes Provider Name and Address Organization Details Recorded Time Headache 17669972 Completed 200404/30/2010 Not Available [facility] 3 03:06:37 Contusio n 349862973 Completed 200704/30/2010 Not Available [facility] 3 03:06:37 Atypical squamous cells of undeterm ined signific ance on cervical Papanico laou smear 201996985 Active Not Available [facility] 3 03:06:37 Herpes simplex 49736185 Completed 200504/30/2010 tested neg, no recurren ce Not Available [facility] 3 03:06:37 Right lower quadrant pain 601172123 Completed 04/30/2010 Not Available [facility] 3 03:06:37 Urinary tract infectio us disease 82100590 Completed 04/30/2010 Not Available [facility] 3 03:06:37 Diarrhea 36610780 Completed 200004/30/2010 Not Available [facility] 3 03:06:37 Migraine with aura 2818672 Active NICHOLAS Powers [address] [place] [address], [id number] , [facility] 5 16:26:58 Acute pharyngi tis 112974367 Completed 200404/30/2010 Not Available [facility] 3 03:06:37 Closed fracture of phalanx of foot 56655567 Completed 200203/06/2013 Not Available [facility] 3 02:04:03 Pain in throat 711621593 Completed 04/30/2010 Not Available [facility] 3 03:06:37 Common cold 59416795 Completed 200204/30/2010 Not Available [facility] 3 03:06:37 Verruca vulgaris 78386577 Completed 200104/30/2010 Not Available [facility] 3 03:06:37 Dysmenor leonel 653063159 Completed 200604/30/2010 Not Available [facility] 3 03:06:37 Infectio us mononucl eosis 263066814 Completed 200403/06/2013 Not Available [facility] 3 02:04:07 Acute conjunct ivitis 55429071 Completed 200404/30/2010 Not Available [facility] 3 03:06:37 Abnormal weight gain 989114127 Active Not Available [facility] 3 03:06:37 Sprain of knee and leg Completed 200404/30/2010 Not Available [facility] 3 03:06:37 Concussi on injury of brain 019285147 Completed 200304/30/2010 Not Available [facility] 3 03:06:37 Generali zed abdomina l pain 926927066 Completed 200404/30/2010 Not Available [facility] 3 03:06:37 Acne 02880812 Completed 200604/30/2010 Not Available [facility] 3 03:06:37 Dysuria 82453915 Completed 04/30/2010 Not Available [facility] 3 03:06:37 Migraine 58331840 Active Lina Phillips, RANGE RIDER [address] [place] [address], [phone] , [facility] 3 12:26:02 Pain in wrist 57378132 Completed 200304/30/2010 Not Available [facility] 3 03:06:37 Sprain of wrist 00733529 Completed 200304/30/2010 Not Available [facility] 3 03:06:37 Pain in limb 34078163 Completed 200204/30/2010 Not Available [facility] 3 03:06:37 Viral upper respirat ory tract infectio n 699852962 Completed 200704/30/2010 Not Available [facility] 3 03:06:37 Malaise and fatigue 647325236 Completed 200704/30/2010 Not Available [facility] 3 03:06:37 Sprain of hand 89123583 Completed 200204/30/2010 Not Available [facility] 3 03:06:37 Problem Notes None recorded. Medical Equipment None Reported. Allergies No known drug allergies Medications Name Sig Start Date Stop Date Status Note LastModified by Organization Details LastModified Time doxycycl hyc tab 100mg active Not Available Not Available No t Available 05/06 tab active Not Available Not Available Not Available microgestin tab 05/06 active Not Available [...] completed Not Available Not Available Not Available 05/06 (21) 1 mg-20 mcg tablet TAKE 1 TABLET BY MOUTH EVERY DAY 04/05 completed Not Available Not Available Not Available Vitals Date Recorded Body weight Heart rate Body mass index (BMI) Body height Body temperature Systolic blood pressure Diastolic blood pressure Provider Name and Address Organization Details Last Updated DateTime 5 16128.2 99152 g 80 /min 26 kg/m2 165.1 cm 98.9 [degF] 122 mm[Hg] 70 mm[Hg] Marilyn Gillespie [employer] [facility] 5 16:41:41 Date Recorded Body height Body mass index (BMI) Body weight Provider Name and Address Organization Details Last Updated DateTime 12/11/2014 165.1 cm 24 kg/m2 92946.75970 2 g Radha Damian [facility] 12/11/2014 15:47:49 Date Recorded Heart rate Systolic blood pressure Diastolic blood pressure Provider Name and Address Organization Details Last Updated DateTime 12/11/2014 80 /min 104 mm[Hg] 74 mm[Hg] Radha Damian [facility] 12/11/2014 15:53:39 Date Recorded Body height Provider Name an d Address Organization Details Last Updated DateTime 03/08/2016 165.1 cm Roxanne Salguero LPN [facility] 03/08/2016 07:46:45 Date Recorded Body weight Provider Name an d Address Organization Details Last Updated DateTime 03/08/2016 40657.14 g [facility] 03/08/2016 07:48:01 Date Recorded Body mass index (BMI) Provider Name and Address Organization Details Last Updated DateTime 03/08/2016 27.5 kg/m2 Rox[facility] 03/08/2016 07:48:02 Date Recorded Heart rate Provider Name an d Address Organization Details Last Updated DateTime 03/08/2016 72 /min [facility] 03/08/2016 07:51:50 Date Recorded Body temperature Provider Name a nd Address Organization Details Last Updated DateTime 03/08/2016 98.1 [degF] [facility] 03/08/2016 07:52:23 Date Recorded Body weight Provider Name an d Address Organization Details Last Updated DateTime 04/05/2016 23447.19 g Adrianna Kolby [facility] 04/05/2016 17:04:20 Date Recorded Body height Body mass index (BMI) Provider Name and Address Organization Details Last Updated DateTime 04/05/2016 163.83 cm 28.4 kg/m2 Adrianna Jarrett [facility] 04/05/2016 17:05:46 Date Recorded Body temperature Provider Name a nd Address Organization Details Last Updated DateTime 04/05/2016 98.2 [degF] Adrianna Jarrett [facility] 04/05/2016 17:05:52 Date Recorded Systolic blood pressure Diastolic blood pressure Provider Name and Address Organization Details Last Updated DateTime 03/08/2016 100 mm[Hg] 66 mm[Hg] Roxanne Salguero LPN [facility] 03/08/2016 07:51:42 Date Recorded Systolic blood pressure Diastolic blood pressure Provider Name and Address Organization Details Last Updated DateTime 04/05/2016 112 mm[Hg] 82 mm[Hg] Adrianna Jarrett [facility] 04/05/2016 17:05:49 Social History Question Answer [...] 03/03/2011 Does The Patient Have Difficulty Speaking Azeri? No Information not available 12/11/2014 Does The Patient Have Difficulty Reading Azeri? Yes Information not available 12/11/2014 Patient Has [...] Td(adult) unspecified formulation 3 completed Not Available [facility] 03/02/2011 05:22:52 HPV, unspecified formulation 7 completed Not Available [facility] 03/02/2011 05:22:41 HPV, unspecified formulation 7 completed Not Available [facility] 03/02/2011 05:21:55 Influenza, split virus, trivalent, preservative 9 completed Not Available [facility] 05/04/2019 02:36:22 HPV, unspecified formulation 8 completed Not Available [facility] 03/02/2011 05:22:41 Influenza, split virus, trivalent, preservative 2 completed Not Available [facility] 05/04/2019 02:18:37 DTP 6 completed Not Available [facility] 03/02/2011 05:22:52 DTP 1 completed Not Available [facility] 03/02/2011 05:22:52 DTP 3 completed Not Available [facility] 03/02/2011 05:22:52 DTP 1 completed Not Available [facility] 03/02/2011 05:22:52 DTP 2 completed Not Available [facility] 03/02/2011 05:22:52 OPV 1 completed Not Available [facility] 03/02/2011 05:22:52 OPV 6 completed Not Available [facility] 03/02/2011 05:22:52 OPV 1 completed Not Available [facility] 03/02/2011 05:22:52 OPV 3 completed Not Available [facility] 03/02/2011 05:22:52 Hep B, unspecified formulation 6 completed Not Available [facility] 03/02/2011 05:22:52 Hep B, unspecified formulation 6 completed Not Available [facility] 03/02/2011 05:22:52 Hep B, unspecified formulation 7 completed Not Available [facility] 03/02/2011 05:22:52 Hib, unspecified formulation 1 completed Not Available [facility] 03/02/2011 05:22:52 Hib, unspecified formulation 2 completed Not Available [facility] 03/02/2011 05:22:52 Hib, unspecified formulation 1 completed Not Available [facility] 03/02/2011 05:22:52 Hib, unspecified formulation 2 completed Not Available [facility] 03/02/2011 05:22:52 MMR 6 completed Not Available [facility] 03/02/2011 05:22:52 MMR 2 completed Not Available [facility] 03/02/2011 05:22:52 Influenza, split virus, trivalent, PF 3 completed Not Available [facility] 05/04/2019 02:37:08 Influenza, split virus, quadrivalent, preservative 6 completed Roxanne Salguero LPN [facility], [facility] 03/08/2016 08:23:08 Tdap 0 completed Not Available [facility] 05/04/2019 02:38:01 Past Encounters Encounter ID Performer Location Encounter Start Date Encounter Closed Date Diagnosis/Indication Diagnosis SNOMED-CT Code Diagnosis ICD10 Code Diagnosis Note [id number] [facility], [address] [place] [address] 05/08/2000 09:45:00 05/07/2008 02:02:29 [id number] [facility], [address] [place] [address] 10/10/2000 12:00:00 05/07/2008 02:02:29 [id number] [facility], [address] [place] [address] 01/11/2002 15:27:42 05/07/2008 02:02:29 [id number] [facility] [address] [place] [address] 05/15/2002 17:14:25 05/07/2008 02:02:29 [id number] [facility], [address] [place] [address] 06/22/2002 14:36:20 05/07/2008 02:02:29 [id number] Radiology , [facility] [address] [place] [address] 06/22/2002 14:50:31 05/07/2008 02:02:29 [id number] Radiology , [facility] [address] [place] [address] 08/19/2002 16:23:24 05/07/2008 02:02:29 [id number] [facility], [address] [place] [address] 08/19/2002 15:57:47 05/07/2008 02:02:29 [id number] [facility], [address] [place] [address] 10/30/2002 09:19:22 05/07/2008 02:02:29 [id number] Optical, [facility] [address] [place] [address] 12/11/2002 15:31:24 05/07/2008 02:02:29 [id number] [facility], [address] [place] [address] 02/25/2003 15:12:44 02/25/2003 18:26:50 [id number] LAB - [facility] [address] [place] [address] 02/25/2003 00:00:00 05/07/2008 02:02:29 [id number] [facility], [address] [place] [address] 11/21/2003 15:55:54 11/24/2003 09:14:25 [id number] [facility], [address] [place] [address] 01/01/2004 14:10:29 01/02/2004 09:33:11 [id number] Radiology , [facility] [address] [place] [address] 01/01/2004 14:49:48 01/02/2004 09:30:11 [id number] [facility], [address] [place] [address] 03/23/2004 16:44:30 03/24/2004 09:03:41 [id number] [facility], [address] [place] [address] 05/28/2004 16:00:33 05/29/2004 09:55:00 [id number] [facility], OFFICE [address] [facility] [place] [address] 06/07/2004 09:52:25 06/07/2004 15:13:51 [id number] [facility] [address] [place] [address] 06/07/2004 10:18:47 06/08/2004 08:20:17 [id number] [facility], OFFICE [address] [facility] [place] [address] 08/19/2004 16:23:32 08/20/2004 09:25:11 [id number] , [facility], OFFICE [address] [facility] [place] [address] 10/20/2004 15:08:58 10/21/2004 08:30:21 [id number] LAB - [facility] [address] [facility] [place] [address] 10/20/2004 00:00:00 05/07/2008 02:02:29 [id number] [facility], OFFICE [address] [facility] [place] [address] 12/02/2004 14:32:07 05/07/2008 02:02:29 [id number] [facility], OFFICE [address] [facility] [place] [address] 01/27/2005 10:59:39 05/07/2008 02:02:29 [id number] [facility], OFFICE [address] [facility] [place] [address] 01/29/2005 09:23:52 01/29/2005 14:21:59 [id number] [facility], OFFICE [address] [facility] [place] [address] 02/08/2005 13:51:15 05/07/2008 02:02:29 [id number] LAB - [facility] [address] [facility] [place] [address] 02/08/2005 00:00:00 05/07/2008 02:02:29 [id number] [facility], OFFICE [address] [facility] [place] [address] 02/10/2005 15:32:28 05/07/2008 02:02:29 [id number] LAB - [facility] [address] 02/10/2005 00:00:00 05/07/2008 02:02:29 [id number] [facility], OFFICE [address] [facility] [place] [address] 03/01/2005 16:14:19 05/07/2008 02:02:29 [id number] [facility], OFF[address] [place] 10/04/2005 08:46:03 05/07/2008 02:02:29 [id number] ARASELI [facility], [address] [place] [address] 12/23/2005 14:55:05 05/07/2008 02:02:29 [id number] [facility], [address] [place] [address] 06/07/2006 16:22:22 06/08/2006 10:37:35 [id number] [facility], OFF[address] [place] 10/23/2006 16:23:48 10/24/2006 09:26:31 [id number] LAB - [facility] [address] [place] [address] 10/27/2006 07:50:22 10/27/2006 07:50:32 [id number] ARASELI [facility], [address] [place] [address] 01/12/2007 15:02:24 05/07/2008 02:02:29 [id number] ARASELI [facility], [address] [place] [address] 02/28/2007 15:02:32 05/07/2008 02:02:29 [id number] LAB - [facility] [address] [place] [address] 02/28/2007 00:00:00 05/07/2008 02:02:29 [id number] [facility], [address] [place] [address] 03/19/2007 15:17:18 05/07/2008 02:02:29 [id number] [facility], [address] [place] [address] 06/05/2007 16:32:55 05/07/2008 02:02:29 [id number] ARASELI [facility], [address] [place] [address] 11/07/2007 16:45:47 05/07/2008 02:02:29 [id number] ARASELI [facility], [address] [place] [address] 01/04/2008 14:59:01 05/07/2008 02:02:29 [id number] LAB - [facility] 70 [facility] [place] [address] 01/04/2008 00:00:00 05/07/2008 02:02:29 [id number] MARY KAY MARX, [address] [place] [address] 01/14/2008 13:25:38 05/07/2008 02:02:29 [id number] YUDELKA MARX, OFF[address] [place] [address] 02/05/2008 10:42:12 02/08/2008 08:28:19 [id number] LAB - [facility] 70 [facility] [place] [address] 02/05/2008 11:34:43 02/05/2008 11:35:09 [id number] YUDELKA MARX, OFF[address] [place] [address] 12/28/2008 10:58:16 12/30/2008 16:39:53 [id number] YUDELKA MARX, OFF[address] [place] [address] 01/10/2009 09:49:31 01/12/2009 13:48:44 [id number] ARASELI [facility], OFF[address] [place] [address] 01/20/2009 10:28:13 01/20/2009 14:35:58 [id number] ARASELI [facility], OFF[address] [place] [address] 02/03/2009 10:48:33 02/05/2009 09:25:41 [id number] Sharda MARX [facility], [address] [place] [address] 02/10/2009 14:49:50 02/12/2009 09:19:05 [id number] LAB - [facility] [address] [place] [address] 12/28/2008 00:00:00 02/12/2009 02:00:52 [id number] LAB - [address] [address] 01/10/2009 00:00:00 02/12/2009 02:00:52 [id number] LAB - [address] [address] 01/20/2009 10:56:12 01/20/2009 10:56:45 [id number] YUDELKA MARXC, OFFICE [address] [place], [place] [address] 06/30/2009 10:38:09 07/02/2009 09:00:33 [id number] FP, [facility], OFFICE [address] [place], [place] [address] 12/02/2009 10:47:12 12/07/2009 10:28:26 [id number] FP, [facility], OFFICE [address] [place], [place] [address] 01/11/2010 07:28:50 01/14/2010 08:03:37 [id number] FP, [facility], OFF[address] [place], [place] [address] 01/26/2010 14:53:01 01/27/2010 11:42:50 [id number] FP, [facility], OFF[address] [place], [place] [address] 03/23/2010 15:26:35 04/20/2010 14:31:30 [id number] FP, [facility], OFFICE [address] [place], [place] [address] 04/06/2010 09:02:48 04/08/2010 11:02:23 [id number] FP, [facility], OFF[address] [place], [place] [address] 04/30/2010 09:22:49 05/03/2010 13:01:08 [id number] Linda Escobar MA FP, [facility], [address] [place] [address] 09/15/2010 08:48:00 09/17/2010 09:00:24 [id number] FP, [facility], [address] [place] [address] 09/17/2010 08:44:14 09/20/2010 11:49:35 [id number] Linda Escobar MA FP, [facility], OFF[address] [place], [place] [address] 10/01/2010 10:00:13 10/01/2010 10:14:45 [id number] FP, [facility], OFF[address] [place], [place] [address] 10/04/2010 08:55:56 10/05/2010 09:34:20 [id number] Marilyn Gillespie LPN FP, [facility], OFF[address], [place] [address] 02/25/2011 10:31:12 02/28/2011 11:47:03 [id number] Marilyn Gillespie LPN , [facility], [address] [place] [address] 10/17/2011 09:21:07 10/17/2011 10:22:53 [id number] Mandie Chaudhari NP , [facility], [address] [place] [address] 03/15/2012 14:21:47 03/15/2012 14:50:00 [id number] Paty Reyes , [facility], [address] [place] [address] 01/01/2013 11:34:24 01/01/2013 13:38:00 Adult health examination [id number] see Risk Assessment and Lifestyle Change Counseling section above 22 yo female seen for annual health exam, healthy and well Counseling 368191526 Screening for malignant neoplasm of cervix 728757156 Venereal d isease screening 086067291 Influenza vaccine needed 8139617429 106 Migraine 86464299 discus sed migraine HAs, encouraged to continue Ibuprofen 800mg prn which are effective. [id number] Roxanne Salguero LPN , [facility], [address] [place] [address] 07/24/2013 10:50:36 07/24/2013 11:21:58 Tuberculosis screening 449228641 [id number] KEYSHA Fink[facility], [facility], [address] [place] [address] 06/16/2014 16:29:30 06/16/2014 16:48:30 Otalgia 90138833 no s/s of infection. reassuranc e provided. [id number] NICHOLAS Powers , [facility], OFF[address] [place] [address] 12/11/2014 15:24:22 12/11/2014 16:26:44 Adult health examination 077537667 see Risk Assessment and Lifestyle Change Counseling section above Counseling 870929597 Uses contraception 86447691 Migraine with aura 1894955 [id number] KEYSHA Mariscal , [facility], [address] [place] [address] 03/08/2016 07:37:25 03/15/2016 11:52:20 Tick bite 64427694 S10.16XA [id number] Kushal Jones MD , [facility], [address] [place] [address] 04/05/2016 16:52:41 04/05/2016 17:26:25 Swelling of hand 767319524 R22.33 Health Concerns Section Related Observation LastModified by Organization Detai ls LastModified Time None Recorded Concern Status LastModified by Organization Details LastModified Time None Recorded Advance Directives Directive N: not interested 04/30/10 Payers Encounter Date Sequence Insurance Name Policy Number Policy Brown Covered Member ID Brown Member ID Guarantor Name 07/24/2013 1 [facility] [id number] Josey Kallie [id number] Genesis L Tj 06/16/2014 1 [facility] [id number] Josey Kallie [id number] Genesis L Tj 12/11/2014 1 [facility] [id number] Josey Kallie [id number] Genesis L Tj 03/08/2016 1 [facility] [id number] Genesis L Tj [id number] Genesis L Tj 04/05/2016 1 [facility] [id number] Genesis L Tj [id number] Genesis L Tj Notes Date Note Type Note Provider Name and Address Organization Details Recorded Time 07/24/2013 text/html HPI PPD plant for school? Roxanne Salguero LPN [facility], [facility] 07/24/2013 11:21:49 06/16/2014 text/html pt got right faiza e tonsil swelling, still bothering pt. especially when she eats something hot or when she swallows and it hernandez. Becka Chamberlain, [facility], [address], [facility] 06/19/2014 11:11:06 03/08/2016 text/html Seen for tick bi te on her back noticed on Monday night, removed engorged, embeded tick on Monday night, area of bite became red & irritated. Lina Phillips, [address], [phone], [facility] [place] 03/08/2016 08:12:55 04/05/2016 text/html 25-year-old nurs e [...] doxycycline at that time. Kushal Jones MD [address] [place] [address], [phone], [facility] [place] 04/06/2016 15:55:34 OBGyn Episode No OBEpisode recorded.
--- OUTSIDE RECORDS SUMMARY | 2024-05-16 16:49 | XMS_ITS | Clinical Summary ---
Author Organization [employer] Address [address] [facility] 7t [place] [address] Care Team Providers Care Animal Park Code Enforcement Officer Name Role Phone Unavailable Primary Care Provider [...] NEEDED FOR COUGH 03/10/2024 Active nystatin (Mycostatin) 535492 UNIT/GM powder Apply topically. 02/20/2024 5 Active Active Problems Problem Noted Date Diagnosed Date Anxiety 03/27/2023 03/27/2023 Dense breast tissue on mammogram 03/27/2023 03/27/2023 Depression, major, recurrent, mild 03/27/2023 03/27/2023 Migraine headache 03/27/2023 03/27/2023 Family history of malignant melanoma 07/29/2020 03/27/2023 Family history of prostate cancer 07/29/2020 03/27/2023 BRCA2 gene mutation positive in female 03/27/2023 Overview (03/27/2023): BRCA2 c.8463del Tested at [facility] Encounters Date Type Department Care Team Description 03/18/2024 8:00 AM EST Office Visit [facility] [address] [place] [address] Mili Mann CNP Acute cough (Primary [...] complete this [place] [address] [facility] Care Teams Animal Park Code Enforcement Officer Relationship Specialty Start Date End Date Zenobia Truong [address] [place] [address] Primary Care Provider Family Medicine 02/16/23
== END 2024-05-16 17:05 | disposition home or self-care (01) ==
LOC: HO.HMCFM 13:01
PROVIDERS: PCP Physician Assistant; Visit Provider Physician Assistant
DX: F41.1 Generalized anxiety disorder (principal); F34.1 Dysthymic disorder

== ENCOUNTER 2024-12-18 15:58 | Outpatient (AMB) | payer BC, SELFPAY ==
--- OUTSIDE RECORDS SUMMARY | 2024-03-10 11:54 | XMS_ITS | Encounter Summary ---
Author Organization [facility] Address [address] [place] [address] [place] [phone] Phone Care Team Providers Care Sales And Marketing Assistant Name Role Phone Self-Referred, Patient Unavailable Unavailab le Self-Referred, Patient Unavailable Unavailab Tanya Laura MD Primary Care Provider [phone] Encounter Details Date Type Department Care Team (Late st Contact Info) Description 03/10/2024 10:54 AM EST Hospital Encounter [facility] [address] [place] [address] [phone] Martín Arora PA-C [address] [place] [phone] [email or web address] Social History Tobacco Use Types Packs/Day Years Used Date Smoking Tobacco: Never Smokeless Tobacco: Never Alcohol Use Standard Drinks/Week Comments Yes 3 (1 standard drink = 0.6 oz pur e alcohol) Home Health Assessment: Transportation Answer Date Recorded Lack of Transportation (Medical) No 05/01/2024 Lack of Transportation (Non-Medical) No 05/01/2024 Patient Unable or Declines to Respond No 05/01/2024 Education Answer Date Recorded Are you interested in more education? Not on rahul e 08/12/2022 Are you concerned about learning? Not on file 08/12/2022 No 08/12/2022 No 08/12/2022 Digital Access Answer Date Recorded No 09/09/2022 No 09/09/2022 Reliable internet access at home? Not on file 09/09/2022 Device with a working camera? Not on file Intimate Partner Violence Answer Date R ecorded Are you denied basic needs s uch as food, clothing, or medical care? No 07/22/2024 In the past 12 months have y ou been in a relationship with a person who hurts, threatens, or tries to control you? No 07/22/2024 Are you denied basic needs s uch as food, clothing, or medical care? No 07/22/2024 In the past 12 months have y ou been in a relationship with a person who hurts, threatens, or tries to control you? No 07/22/2024 Comments No Sex and Gender Information Value Date Recorded Sex Assigned at Female 07/20/2020 12:31 PM EDT Legal Sex Female 9:01 PM EDT Gender Identity Female 07/20/2020 12:31 PM EDT Sexual Orientation Straight 07/20/2020 12 :31 PM EDT documented as of this encounter Plan of Treatment Upcoming Encounters Date Type Department Care Team (Late st Contact Info) Description 01/08/2025 10:15 AM EDT [facility], [facility] [address] [place] [address] Heidi Moerira MD [address] [place] [phone] [email or web address] 05/26/2025 1:00 PM EST Office Visit [facility], [facility], [facility] [address] [place] [address], [address] [place] [phone] Jose Francisco Lerma CNP [address] [place] [address] [email or web address] Mattie Mcdaniel MD [address] [place] [phone] [email or web address] documented as of this encounter Procedures Procedure Name Priority Date/Time Associated Diagnosis Comments XR CHEST PA AND LATERAL 2 VIEWS Urgent/patient waiting 03/10/2024 11:03 AM EST Asthmatic bronchitis with acute exacerbation, unspecified asthma severity, unspecified whether persistent documented in this encounter Results * XR CHEST PA AND LATERAL 2 VIEWS (03/10/2024 11:03 AM EST) Anatomical Region Laterality Modality Chest Computed Radiogr aphy 03/10/2024 11:5 2 AM EST Impressions 03/10/2024 12:01 PM EST No acute findings. Narrative 03/10/2024 12:01 PM EST XR CHEST PA AND LATERAL 2 VIEWS Referring clinician's provided indication for this examination in [facility]: Cough; cough 2 weeks, lung sounds right rhonchi COMPARISON: None FINDINGS: Lungs: Clear lungs. Pleura: No pleural effusion. No pneumothorax Heart/Mediastinum: Heart size normal. Bones/Soft Tissues: No acute finding Procedure Note Kam Reich MD, ARNOLDO - 03/10/2024 XR CHEST PA AND LATERAL 2 VIEWS Referring clinician's provided indication for this examination in [facility]:Cough; cough 2 weeks, lung sounds right rhonchi COMPARISON: None FINDINGS: Lungs: Clear lungs. Pleura: No pleural effusion. No pneumothorax Heart/Mediastinum: Heart size normal. Bones/Soft Tissues: No acute finding IMPRESSION: No acute findings. Martín Arora PA-C IMG XR CHEST Final Re sult documented in this encounter Visit Diagnoses Not on filedocumented in this encounter Care Teams Sales And Marketing Assistant Relationship Specialty Start Date End Date Tanya Beltran MD PCP - General Internal Medicine 02/16/24 03/21/24 Self-Referred, Patient Referring Physician 05/28/20 Self-Referred, Patient 02/08/24 documented as of this encounter Additional Source Comments The information contained in this document represents components of the legal health record. It is not the complete legal health record.[facility]
--- NOTE | 2024-12-18 15:41 | MHC.PC.OV ---
Intake Visit Reasons: Medication change Intake Note: Medication change. Supervisor Of Communications Required: No Allergies No Known Allergies Allergy (Verified 12/18/24 15:42) Medication List - Last Reconciled 12/18/24 by Zenobia Ordaz PA-C lorazepam 0.5 mg PO BID PRN tamoxifen 20 mg PO DAILY venlafaxine ER (Effexor XR) 75 mg PO DAILY Tobacco use date assessed: 12/18/24 Dental Screening Dental Screen Date: 12/18/24 Did you have a dental visit in the last 12 months?: Yes Did you have a dental problem in the last 6 months where you did not have access to dental care?: No Was dental information given to patient?: Patient has dentist HPI Medication change HPI Details Patient is a 34-year-old female who presents today for a follow up regarding her medications. Psych: Feels that she would benefit from an increased dosage of the Effexor. She is currently following with a therapist and couples therapy. She says that it has been helpful. No SI/HI. She just has a lot of changes going on in her life. Reports today that she has noticed a lump on the left chest wall. She states that she hopes his scar tissue from the mastectomy but having the breast cancer diagnosis makes her nervous. The lump is about golf ball size. It is not tender. It has not changed in size. Has been there for a couple weeks. PENDING SALE TO [facility] Medical History (Updated 12/18/24 @ 16:06 by Zenobia Ordaz PA-C) Generalized anxiety disorder Dysthymia Overweight (BMI 25.0-29.9) Anxiety Ocular migraine Family History Mother HTN (hypertension) Father Hypercholesteremia Diabetes Small cell lung cancer Maternal Grandmother Breast cancer Social History Housing: House Alcohol intake: current Patient Tobacco Use Status: Never used Tobacco e-Cigarette/Vaping Use: Never Used Second Hand Smoke Exposure: No service: No Current occupational status: employed Current occupation: Nurse Current occupational exposures/hazards: No Cognitive needs: No Hearing needs: No Vision needs: Yes (contacts) Questionnaire Thrive Questionnaire Date Thrive assessed: 05/02/24 AUDIT C Alcohol Use Questionnaire (AUDIT-C) 1. How often do you have a drink containing alcohol?: 2-4 times a month 2. How many drinks containing alcohol do you have on a typical day when you are drinking?: 3 or 4 3. How often do you have six or more drinks on one occasion?: Never Total Score: 3 CRYSTAL-7 AMB Questionnaire CRYSTAL-7 Date CRYSTAL - 7 assessed: 05/02/24 Source: Developed by Drs. Braydon Brown, Payal Paulson, Geraldo Alexander and colleagues, with an educational alondra from [employer] Physical exam (Primary Care) Tobacco/Smoking Status: Tobacco use Status Tobacco use date assessed 12/18/24 12/18/24 15:43 Patient Tobacco Use Status Never used Tobacco 12/18/24 15:43 e-Cigarette/Vaping Use Never Used 12/18/24 15:43 Thrive Assessment: Date of Thrive Assessment Date Thrive assessed 05/02/24 12/18/24 15:43 Telehealth Telehealth Telehealth Platform: Telephone Location of provider rendering services: practice address Location of patient: address on file Patient Identification confirmed using: Name, : Yes Telehealth method: voice only Patient verbally consented to treatment: Yes Patient verbally consented to billing insurance company: Yes Patient informed of any privacy concerns related to visit: Yes Minutes spent on Phone/Video with Pt.: 18 Coding Level of Care Code Tele Est Pt Level 2 (47335) Diagnoses Lump in chest R22.2 Generalized anxiety disorder F41.1 Assessment & Plan Assessment & Plan (1) Lump in chest: Code(s): R22.2 - Localized swelling, mass and lump, trunk Category: Medical Plan: Ultrasound ordered. We will follow up pending test results (2) Generalized anxiety disorder: Code(s): F41.1 - Generalized anxiety disorder Category: Medical Plan: Increase venlafaxine Orders: Orders US chest 12/18/24 R22.2 - Localized swelling, mass and lump, trunk Medications: New venlafaxine ER (Effexor XR) 75 mg PO DAILY 90 caps 2RF Discontinued venlafaxine ER (Effexor XR) Discontinued Reason: Doctor's Order 37.5 mg PO QPM 90 caps 0RF
--- OUTSIDE RECORDS SUMMARY | 2024-12-18 17:47 | XMS_ITS | Encounter Summary ---
Author Organization [facility] Address [address] [facility] [address] [place] [address] Phone Care Team Providers Care Computerized Machine Fabric Cutter Name Role Phone Self-Referred, Patient Unavailable Unavailab le Self-Referred, Patient Unavailable Unavailab Zenobia Sargent Primary Care Provider [phone]- [phone] Mattie Mcdaniel MD Unavailable Encounter Details Date Type Department Care Team (Late st Contact Info) Description 07/22/2024 Procedure Pass [facility] [address] [place] [address] Social History Tobacco Use Types Packs/Day Years [...] Oncology, [facility], [facility] [place] [facility] [place] [address] [facility] 4th [place] [address] Heidi Moreira MD [address] [place] [address] [email or web address] 05/26/2025 1:00 PM EST Office Visit [facility], [facility], [facility] [place] [address] [place] [address], 9th [place] [address] Jose Francisco Lerma, SHIRA [address] [place] [address] [email or web address] Mattie Mcdaniel MD [address] [place] [address] [email or web address] documented as of this encounter Visit Diagnoses Not on filedocumented in this encounter Additional Health Concerns Assessment Noted Time PHQ-2 Depression Total Score: 0 06/18/19 25 2:37 PM EST documented as of this encounter Care Teams Computerized Machine Fabric Cutter Relationship Specialty Start Date End Date Zenobia Ordaz PA PCP - General Physician Marbleizing Machine Tender 04/16/24 Self-Referred, Patient Referring Physician 05/28/20 Self-Referred, Patient 02/08/24 Mattie Mcdaniel MD [address] [place] [address] [email or web address] Medical Oncology 06/10/24 documented as of this encounter Additional Source Comments The information contained in this document represents components of the legal health record. It is not the complete legal health record.[facility]
--- OUTSIDE RECORDS SUMMARY | 2024-12-18 17:47 | XMS_ITS | Encounter Summary ---
Author Organization [facility] Address [address] [place] [address] [place] [address] Phone Care Team Providers Care Service Center Supervisor Name Role Phone Self-Referred, Patient Unavailable Unavailab le Self-Referred, Patient Unavailable Unavailab Zenobia Sargent Primary Care Provider +1- [phone] Tanya Beltran MD Primary Care Provider [phone] Mattie Mcdaniel MD Unavailable Encounter Details Date Type Department Care Team (Late st Contact Info) Description 03/25/2024 Procedure Pass [facility] [address] [place] [id number] Social History Tobacco Use Types Packs/Day Years Used Date Smoking Tobacco: Never Smokeless Tobacco: Never Alcohol Use Standard Drinks/Week Comments Not Currently 0 (1 standard drink = 0.6 oz pur e alcohol) occasional / once a week Home Health Assessment: Transportation Answer Date Recorded Lack of Transportation (Medical) No 03/29/2024 Lack of Transportation (Non-Medical) No 03/29/2024 Patient Unable or Declines to Respond No 03/29/2024 Education Answer Date Recorded Are you interested [...] as food, clothing, or medical care? No 03/25/2024 In the past 12 months have y ou been in a relationship with a person who hurts, threatens, or tries to control you? No 03/25/2024 Are you denied basic needs s uch as food, clothing, or medical care? No 03/25/2024 In the past 12 months have y ou been in a relationship with a person who hurts, threatens, or tries to control you? No 03/25/2024 Comments No Sex and Gender Information Value [...] Oncology, [facility], [facility] [place] [facility] [address] [place] [address] Heidi Moreira MD [address] [place] [address] [email or web address] 05/26/2025 1:00 PM EST Office Visit [facility], [facility], [facility] [place] [address] [place] [address], 9th [place] [address] Jose Francisco Lerma CNP [address] [place] [address] [email or web address] Mattie Mcdaniel MD [address] [place] [address] [email or web address] documented as of this encounter Visit Diagnoses Not on filedocumented in this encounter Care Teams Service Center Supervisor Relationship Specialty Start Date End Date Zenobia Ordaz PA PCP - General Physician Church History Teacher 04/16/24 Tanya Beltran MD PCP - General 04/15/24 04/15/24 Self-Referred, Patient Referring Physician 05/28/20 Self-Referred, Patient 02/08/24 Mattie Mcdaniel MD [address] [place] [address] [email or web address] Medical Oncology 06/10/24 documented as of this encounter Additional Source Comments The information contained in this document represents components of the legal health record. It is not the complete legal health record.[facility]
--- OUTSIDE RECORDS SUMMARY | 2024-12-18 17:47 | XMS_ITS | Clinical Summary ---
Author Organization [facility] Address [address] [place] [address] [place] [address] Phone Care Team Providers Care Creative Technologist Name Role Phone Self-Referred, Patient Unavailable Unavailab le Self-Referred, Patient Unavailable Unavailab Zenobia Sargent Primary Care Provider [phone]- [phone] Mattie Mcdaniel MD Unavailable Allergies No known active allergies Medications LORazepam (ATIVAN) 0.5 MG tablet Take 1 tablet (0.5 mg total) by mouth every 6 (six) hours as needed (muscle spasms). 10 tablet 5 Active tamoxifen (NOLVADEX) 20 MG tablet Take 1 tablet (20 mg total) by mouth daily. 90 tablet 3 5 Active venlafaxine (EFFEXOR-XR) 37.5 MG 24 hr capsule Take 37.5 mg by mouth every evening. 5 Active escitalopram oxalate (LEXAPRO) 10 MG tablet Take 1 tablet by mouth every morning. 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, estrogen receptor positive 04/15/2024 Migraine headache 03/27/2023 Family history of breast cancer in female 2020 Family history of malignant melanoma 07/29/2020 Family history of lung cancer 07/29/2020 Family history of prostate cancer 07/29/2020 BRCA2 gene mutation positive in female Overview (07/27/2020): BRCA2 c.8463del Tested at [place] [facility] Depressive disorder Encounters Date Type Department Care Team Description 11/25/2024 2:00 PM EDT Office Visit [facility], [facility], [facility] [place] [address] [facility], 9th [place] [address] Mattie Mcdaniel MD Malignant neoplasm of overlapping sites of right breast in female, estrogen receptor positive (Primary Dx) 11/25/2024 9:45 AM EDT Office Visit [facility] [address] [facility], 4th Floor, [address] [place] [address] Abbie Jaramillo MD Malignant neoplasm of left female breast, unspecified estrogen receptor status, unspecified site of breast (Primary Dx) 10/05/2024 1:50 PM EDT Office Visit [facility] at [address] [address] Hansa Pierce PA-C Streptococcal pharyngitis (Primary Dx) from Last 3 Months Family History Medical History Relation Comments BRCA 1/2 Father Breast cancer Maternal Grandmother Breast cancer Paternal Aunt Relation Status Comments Father Maternal Grandmother Paternal Aunt Social History Tobacco Use Types Packs/Day Years [...] Orientation Straight 07/20/2020 12 :31 PM EDT Last Filed Vital Signs Vital Sign Reading Time Taken Comments Blood Pressure 135/86 11/25/2024 1:37 PM EDT Pulse 89 11/25/2024 1:37 PM EDT Temperature 36.8 C (98.3 F) 11/25/2024 1:38 PM EDT Respiratory Rate 14 11/25/2024 1:33 PM EDT Oxygen Saturation 100% 11/25/2024 1:37 PM EDT Inhaled Oxygen Concentration - - Weight 74.1 kg (163 lb 5.8 oz) 11/25/2024 1:33 P M EDT Height 165.1 cm (5' 5 ) 10/05/2024 1:51 PM EDT Body Mass Index 27.18 10/05/2024 1:51 PM EDT Plan of Treatment Upcoming Encounters Date Type Department Care Team (Late st Contact Info) Description 01/08/2025 10:15 AM EDT Office Visit [facility], [facility], [facility] [place] [facility] [place] [address] [address] Heidi Moreira MD [address] [place] [address] [email or web address] 05/26/2025 1:00 PM EST Office Visit [facility], [facility], [facility] [place] [address] [facility], 9th [place] [address] Jose Francisco Lerma, SHIRA [address] [place] [address] [email or web address] Matite Mcdaniel MD [address] [place] [address] [email or web address] Health Maintenance Due Date Last Done Comments HEPATITIS C SCREENING 2008 HIV ONE-TIME SCREENING (18-65 YEARS) 2008 PNEUMOCOCCAL VACCINES (0-49 years) (1 of 2 - PCV) 2009 PAP SMEAR 11/02/2011 INFLUENZA VACCINE (#1) 2024 , 01/12/2023, 01/29/2021, Additional history exists COVID-19 VACCINE (2024- season) 2024 04/05/2021, 04/19/2020 DEPRESSION SCREENING 06/17/2025 06/17/2024 Adult Td,Tdap Booster 10/23/2029 10/24/2019, 017 SMOKING STATUS SCREENING (Once After 26 Yrs) Completed 07/22/2024 HEPATITIS A VACCINES Aged Out No long er eligible based on patient's age to complete this topic HIB VACCINES Aged Out No longer eligi ble based on patient's age to complete this topic MENINGOCOCCAL VACCINES (ACWY) Aged Out No longer eligible based on patient's age to complete this topic MENINGOCOCCAL VACCINES (B) Aged Out N o longer eligible based on patient's age to complete this topic Medical Devices Implanted Type Area Casting Machine Control Board Operator Device Identifier Shelf Expiration Date Model / Serial / Lot Construction Craft Laborer Tissue 600cc W15cm H14cm P6.3cm Smooth Natrelle Fourte W/Suture Tabs - [id number] Implanted:Qty: 1 on 03/25/2024 by Abbie Jaramillo MD at [facility] Right: Breast [employer] 05/28/2028 133S-MV-15 -T / [id number] / Graft Tissue Lg Tissue Contour Non Perforated Medium Rtu Alloderm Regenerative Matrix Implantable - [id number] Implanted:Qty: 1 on 03/25/2024 by Abbie Jaramillo MD at [facility] Left: Breast [employer] 12/15/2025 [id number] / / [id number] Graft Tissue Lg Tissue Contour Non Perforated Medium Rtu [employer]oderm Regenerative Matrix Implantable - [id number] Implanted:Qty: 1 on 03/25/2024 by Abbie Jaramillo MD at [facility] Right: Breast [employer] 12/15/2025 [id number] / / [id number] Construction Craft Laborer Tissue 600cc W15cm H14cm P6.3cm Smooth Natrelle Fourte W/Suture Tabs - [id number] Implanted:Qty: 1 on 03/25/2024 by Emilie Wang MD at [facility] Left: Breast [employer] 06/30/2028 133S-MV-15 -T / [id number] / Breast Implant 800cc Responsive Silicone Smooth Round Extra Full Natrelle [employer] - [id number] Implanted:Qty: 1 on 07/22/2024 by Abbie Jaramillo MD at [facility] Right: Breast [employer] 09/10/2028 [id number]-800 / [id number] / [id number] Breast Implant 800cc Responsive Silicone Smooth Round Extra Full Natrelle [employer]ira - [id number] Implanted:Qty: 1 on 07/22/2024 by Abbie Jaramillo MD at [facility] Left: Breast [employer] 07/23/2028 SRX-800 / [id number] / [id number] Procedures Procedure Name Priority Date/Time Associated Diagnosis Comments THROAT CULTURE Routine 10/05/2024 2:29 PM EDT Streptococcal pharyngitis POCT RAPID STREP A Routine 10/05/2024 1: 57 PM EDT from Last 3 Months Results * (ABNORMAL) Throat Culture (10/05/2024 2:29 PM EDT) Special Requests None 10/05/2024 2:30 PM EDT [facility] Beta Strep Culture MIXED ORGANISMS RESEMBLING OROPHARYNGEAL HONORIO(A) 10/06/2024 8:26 AM EDT [facility] Other (Throat) 10/05/2024 2: 29 PM EDT 10/05/2024 5:16 PM EDT us Hansa Pierce PA-C MICROBIOLOGY - GENERAL ORDERABLES Final Result [address] [address] * POCT Rapid Strep A (10/05/2024 1:57 PM EDT) Strep A, PCR Not Detected Not Detected C [facility] 10/05/2024 1:57 PM EDT 10/05/2024 2:25 PM EDT us Hansa Pierce PA-C POINT OF CARE TEST ORD ERABLES Final Result [facility] [address] [address], [facility] [phone] from Last [address] [place] [address] [place] [address] [place] [address] [place] [address] [place] [address] [facility] [place] [address] [place] [address] Care Teams Creative Technologist Relationship Specialty Start Date End Date Zenobia Ordaz PA PCP - General Physician Claim Review Medical Director 04/16/24 Self-Referred, Patient Referring Physician 05/28/20 Self-Referred, Patient 02/08/24 Mattie Mcdaniel MD [address] [place] [address] [email or web address] Medical Oncology 06/10/24 Additional Source Comments The information contained in this document represents components of the legal health record. It is not the complete legal health record.[facility]
--- OUTSIDE RECORDS SUMMARY | 2024-12-18 17:47 | XMS_ITS | Encounter Summary ---
Author Organization [facility] Address [address] [place] [address] [place] [phone] Phone Care Team Providers Care Saw Grinder Name Role Phone Nancie Paulson NP Primary Care Provider Self-Referred, Patient Unavailable Unavailab le Self-Referred, Patient Unavailable Unavailab le Zenobia Ordaz Primary Care Provider +1- [phone] Tanya Beltran MD Primary Care Provider Zenobia Ordaz Primary Care Provider +1- [phone] Tanya Beltran MD Primary Care Provider Mattie Mcdaniel MD Unavailable Encounter Details Date Type Department Care Team (Late st Contact Info) Description 09/15/2020 Procedure Pass [facility] Imaging Department, [facility] [place], [place] [address] [address] Social History Tobacco Use Types Packs/Day Years Used Date Smoking Tobacco: Never Assessed Comments Unknown Sex and Gender Information Value Date Recorded [...] Oncology, [facility], [facility] [place] [facility] [place] [address] [facility] 4th [place] [address] Heidi Moreira MD [address] [place] [address], [address] [address] [email or web address] 05/26/2025 1:00 PM EST Office Visit [facility], [facility], [facility] [place] [address] [facility], 9th [place] [address] Jose Francisco Lerma CNP [address] [place] [address] [email or web address] Mattie Mcdaniel MD [address] [place] [address] [email or web address] documented as of this encounter Visit Diagnoses Not on filedocumented in this encounter Care Teams Saw Grinder Relationship Specialty Start Date End Date Nancie Paulson NP [address] [place] [address] [email or web address] PCP - General Family Medicine 05/28/20 02/07/24 Zenobia Ordaz PA PCP - General Physician Lug Loader 02/08/24 02/15/24 Tanya Beltran MD PCP - General Internal Medicine 02/16/24 03/21/24 Zenobia Ordaz PA PCP - General Physician Lug Loader 04/16/24 Tanya Beltran MD PCP - General 04/15/24 04/15/24 Self-Referred, Patient Referring Physician 05/28/20 Self-Referred, Patient 02/08/24 Mattie Mcdaniel MD [address] [place] [address] [email or web address] Medical Oncology 06/10/24 documented as of this encounter Additional Source Comments The information contained in this document represents components of the legal health record. It is not the complete legal health record.[facility]
--- OUTSIDE RECORDS SUMMARY | 2024-12-18 17:47 | XMS_ITS | Encounter Summary ---
Author Organization [facility] Address [address] [place] [address] [place] [phone] Phone Care Team Providers Care Feed Manager Name Role Phone Self-Referred, Patient Unavailable Unavailab le Self-Referred, Patient Unavailable Unavailab Zenobia Sargent Primary Care Provider [phone] Tanya Beltran MD Primary Care Provider [phone] Mattie Mcdaniel MD Unavailable Encounter Details Date Type Department Care Team (Late st Contact Info) Description 04/05/2024 Procedure Pass BWF Periop 1st floor [address] [place] [address] Social History Tobacco Use Types Packs/Day Years [...] Oncology, [facility], [facility] [place] at [address] [place] [address] Heidi Moreira MD [address] [place] [phone] [email or web address] 05/26/2025 1:00 PM EST Office Visit [facility], [facility], [facility] [place] [address] [place] [address], 9th [place] [address] Jose Francisco Lerma CNP [address] [place] [address] [email or web address] Mattie Mcdaniel MD [address] [place] [id number] [email or web address] documented as of this encounter Visit Diagnoses Not on filedocumented in this encounter Care Teams Feed Manager Relationship Specialty Start Date End Date Zenobia Ordaz PA PCP - General Physician Typesetter Apprentice 04/16/24 Tanya Beltran MD PCP - General 04/15/24 04/15/24 Self-Referred, Patient Referring Physician 05/28/20 Self-Referred, Patient 02/08/24 Mattie Mcdaniel MD [address] [place] [address] [email or web address] Medical Oncology 06/10/24 documented as of this encounter Additional Source Comments The information contained in this document represents components of the legal health record. It is not the complete legal health record.[facility]
--- OUTSIDE RECORDS SUMMARY | 2024-12-18 17:47 | XMS_ITS | Clinical Summary ---
Author Organization [employer] Address [address] [facility] 7t [place] [address] Care Team Providers Care Drywall Sprayer Name Role Phone Unavailable Primary Care Provider Unavailabl e Allergies No known active allergies Medications tamoxifen (Nolvadex) 20 MG chemo tablet Take 20 mg by mouth Once per day. 08/05/2024 Active LORazepam (Ativan) 0.5 MG tablet Take 0.5 mg by mouth every 6 (six) hours if needed. 07/15/2024 Active escitalopram (Lexapro) 10 MG tablet Take 10 mg by mouth Once per day. Active Active Problems Problem Noted Date Diagnosed Date Anxiety 03/27/2023 03/27/2023 Dense breast tissue on mammogram 03/27/2023 03/27/2023 Depression, major, recurrent, mild 03/27/2023 03/27/2023 Migraine headache 03/27/2023 03/27/2023 Family history of malignant melanoma 07/29/2020 03/27/2023 Family history of prostate cancer 07/29/2020 03/27/2023 BRCA2 gene mutation positive in female 03/27/2023 Overview (03/27/2023): BRCA2 [id number] Tested at [facility] through [facility] Immunizations Immunization Administration Dates Next Due INFLUENZA INJECTABLE QUADRIV [...] Sign Reading Time Taken Comments Blood Pressure 102/64 09/05/2024 8:05 AM EDT Pulse 79 09/05/2024 8:05 AM EDT Temperature 37.1 C (98.8 F) 09/05/2024 8:05 AM EDT Respiratory Rate 16 09/05/2024 8:05 AM EDT Oxygen Saturation 98% 09/05/2024 8:05 AM EDT Inhaled Oxygen Concentration - - Weight 71.7 kg (158 lb) 09/05/2024 8:05 AM EDT Height 163.8 cm (5' 4.5 ) 09/05/2024 8:05 AM EDT Body Mass Index 26.7 09/05/2024 8:05 AM EDT Plan of Treatment Health Maintenance Due Date Last Done Comments Depression Screening 1990 HIV Screening 1990 SDOH Screening 1990 Disability Screening 1990 Alcohol/Substance Use Screening 2002 Family Planning (PISQ) 2005 Hepatitis C Screening 2008 Pneumococcal Vaccine: Pediatrics (0 to 5 Years) and At-Risk Patients (6 to 49) Years (1 of 2 - PCV) 2009 Pap Smear 11/02/2011 Cervical Cancer Screening 2020 HPV/Cotest 2020 COVID-19 Vaccine ( season) 2023 04/05/2021, 04/19/2020 Influenza Vaccine (#1) 2024 4, 01/18/2024, 01/12/2023, Additional history exists Tobacco Screening 09/05/2025 09/05/2024 DTaP/Tdap/Td Vaccines (9 - Td or Tdap) 10/23/2029 10/24/2019, 10/18/2016, 04/06/2010, Additional history exists Zoster Vaccines (1 of 2) 2040 RSV Patients and Patients Aged 60 years or older (1 - 1-dose 75+ series) 2065 HIB Vaccines Completed 02/07/1992, 05/19, 03/12/1991, Additional history exists IPV Vaccines Completed 10/17/1995, 04/17, 03/12/1991, Additional history exists Hepatitis B Vaccines Completed 05/06/1996, 11/24/1995, 10/17/1995 HPV Vaccines Completed 06/05/2007, 12/17, 10/23/2006 Hepatitis A Vaccines Aged Out No long er eligible based on patient's age to complete this topic Meningococcal B Vaccine Aged Out No l onger eligible based on patient's age to complete this topic Meningococcal Vaccine Aged Out No [place] eligible based on patient's age to complete this topic RSV under 20 months Aged Out No longe r eligible based on patient's age to complete this topic Rotavirus Vaccines Aged Out No longer eligible based on patient's age to complete this topic Insurance [facility] H[facility] Care Teams Drywall Sprayer Relationship Specialty Start Date End Date Zenobia Truong [address] [place] [phone] Primary Care Provider Family Medicine 02/16/23
--- OUTSIDE RECORDS SUMMARY | 2024-12-18 17:48 | XMS_ITS | Encounter Summary ---
Author Organization [facility] Address [address] [facility] [address] [place] [phone] Phone Care Team Providers Care Senior Customer Service Representative Name Role Phone Self-Referred, Patient Unavailable Unavailab le Self-Referred, Patient Unavailable Unavailab le Tanya Beltran MD Primary Care Provider [phone] Zenobia Ordaz Primary Care Provider [phone] Tanya Beltran MD Primary Care Provider [phone] Mattie Mcdaniel MD Unavailable Encounter Details Date Type Department Care Team (Late st Contact Info) Description 03/05/2024 Ancillary Orders [facility] [address] [place] [address] Ermelinda Barnes MD, PhD [address] [place] [phone] [email or web address] Cancer (Primary Dx) Social History Tobacco Use Types Packs/Day Years Used Date Smoking Tobacco: Never Assessed Education Answer Date Recorded Are you interested in more education? Not on rahul e 08/12/2022 Are you concerned about learning? Not on file 08/12/2022 No 08/12/2022 No 08/12/2022 Digital Access Answer Date Recorded No 09/09/2022 No 09/09/2022 Reliable internet access at home? Not on file 09/09/2022 Device with a working camera? Not on file Comments Unknown Sex and Gender Information Value [...] Oncology, [facility], [facility] [place] [facility] [place] [address] [facility] 4th [place] [address] Heidi Moreira MD [address] [place] [phone] [email or web address] 05/26/2025 1:00 PM EST Office Visit [facility], [facility], [facility] [place] [address] [facility], 9th [place] [address] Jose Francisco Lerma CNP [address] [place] [address] [email or web address] Mattie Mcdaniel MD [address] [place] [phone] [email or web address] documented as of this encounter Results * Mammogram Outside With Interpretation Or Consult (03/05/2024 9:17 AM EST) 03/13/2024 2:21 PM EST [facility] - 03/13/2024 2:25 PM EST BI MAMMOGRAM OUTSIDE WITH INTERPRETATION OR CONSULT BI MAMMOGRAM OUTSIDE WITH INTERPRETATION OR CONSULT These outside examinations can not be read because they have already been interpreted by an [facility] affiliate (see breast imaging consultation report from 02/23/2024 for details). Procedure Note Jason Obrien MD - 03/13/2024 BI MAMMOGRAM OUTSIDE WITH INTERPRETATION OR CONSULT BI MAMMOGRAM OUTSIDE WITH INTERPRETATION OR CONSULT These outside examinations can not be read because they have already beeninterpreted by an [facility] affiliate (see breast imaging consultation reportfrom 02/23/2024 for details). Ermelinda Barnes MD, PhD IMG OUTSIDE IMAGING W / INTERPRETATION Final Result [employer] [facility] [place] [address] documented in this encounter Visit Diagnoses Diagnosis Cancer- Primary Other malignant neoplasm of unspecified site Cancer Other malignant neoplasm of unspecified site documented in this encounter Care Teams Senior Customer Service Representative Relationship Specialty Start Date End Date Tanya Beltran MD PCP - General Internal Medicine 02/16/24 03/21/24 Zenobia Ordaz PA PCP - General Physician Motion Designer 04/16/24 Tanya Beltran MD PCP - General 04/15/24 04/15/24 Self-Referred, Patient Referring Physician 05/28/20 Self-Referred, Patient 02/08/24 Mattie Mcdaniel MD [address] [place] [address] [email or web address] Medical Oncology 06/10/24 documented as of this encounter Additional Source Comments The information contained in this document represents components of the legal health record. It is not the complete legal health record.[facility]
--- OUTSIDE RECORDS SUMMARY | 2024-12-18 17:48 | XMS_ITS | Encounter Summary ---
Author Organization [facility] Address [address] [facility] [address] [place] [phone] Phone Care Team Providers Care Loft Rigger Name Role Phone Self-Referred, Patient Unavailable Unavailab le Self-Referred, Patient Unavailable Unavailab le Tanya Beltran MD Primary Care Provider [phone] Zenobia Ordaz Primary Care Provider [phone] Tanya Beltran MD Primary Care Provider [phone] Mattie Mcdaniel MD Unavailable Encounter Details Date Type Department Care Team (Late st Contact Info) Description 03/06/2024 Ancillary Orders [facility] [address] [place] [address] Ermelinda Barnes MD, PhD [address] [place] [phone] [email or web address] Cancer (Primary Dx) Social History Tobacco Use [...] Oncology, [facility], [facility] [place] [facility] [place] [address] [facility] 4th [place] [address] Heidi Moreira MD [address] [place] [phone] [email or web address] 05/26/2025 1:00 PM EST Office Visit [facility], [facility], [facility] [place] [address] [facility], 9th [place] [address] Jose Francisco Lerma CNP [address] [place] [address] [email or web address] Mattie Mcdaniel MD [address] [place] [phone] [email or web address] documented as of this encounter Results * Mammogram Outside With Interpretation Or Consult (03/06/2024 10:57 AM EST) 03/13/2024 2:21 PM EST [facility] - 03/13/2024 2:25 PM EST BI MAMMOGRAM OUTSIDE WITH INTERPRETATION OR CONSULT BI MAMMOGRAM OUTSIDE WITH INTERPRETATION OR CONSULT These outside examinations can not be read because they have already been interpreted by an [facility] affiliate (see breast imaging consultation report from 02/23/2024 for details). Procedure Note Jason Obrien MD - 03/13/2024 BI MAMMOGRAM OUTSIDE WITH INTERPRETATION OR CONSULT BI MAMMOGRAM OUTSIDE WITH INTERPRETATION OR CONSULT These outside examinations can not be read because they have already beeninterpreted by an [facility] affiliate (see breast imaging consultation reportfrom 02/23/2024 for details). Ermelinda Barnes MD, PhD IMG OUTSIDE IMAGING W / INTERPRETATION Final Result [employer] [facility] [address] documented in this encounter Visit Diagnoses Diagnosis Cancer- Primary Other malignant neoplasm of unspecified site Cancer Other malignant neoplasm of unspecified site documented in this encounter Care Teams Loft Rigger Relationship Specialty Start Date End Date Tanya Beltran MD PCP - General Internal Medicine 02/16/24 03/21/24 Zenobia Ordaz PA PCP - General Physician Check Processing Clerk 04/16/24 Tanya Beltran MD PCP - General 04/15/24 04/15/24 Self-Referred, Patient Referring Physician 05/28/20 Self-Referred, Patient 02/08/24 Mattie Mcdaniel MD [address] [place] [address] [email or web address] Medical Oncology 06/10/24 documented as of this encounter Additional Source Comments The information contained in this document represents components of the legal health record. It is not the complete legal health record.[facility]
== END 2024-12-18 17:05 | disposition home or self-care (01) ==
LOC: HO.HMCFM 15:58
PROVIDERS: PCP Physician Assistant; Visit Provider Physician Assistant
DX: R22.2 Localized swelling, mass and lump, trunk (principal); F41.1 Generalized anxiety disorder